=== PATIENT | female | born 1990 | race Caucasian/White ===

== ENCOUNTER 2017-05-21 14:55 | Emergency (ER) | payer BC, SELFPAY ==
[2017-05-21 14:56] VITALS: PULSE 98; RESP 18; TEMP 36.6; O2SAT 99; BMI 32.6
[2017-05-21 15:17] LABS: Basophils # 0.1 K/mm3 (0-0.2); Basophils % 0.6 % (0.1-2.0); Eosinophils # 0.1 K/mm3 (0.0-0.4); Eosinophils % 1.5 % (0.1-12.0); Hematocrit 44.9 % (37.0-47.0); Hemoglobin 15.1 g/dL (12.2-16.2); Lymphocytes # 1.9 K/mm3 (0.7-4.5); Lymphocytes % 21.1 K/mm3 (10-50); Mean Corpuscular HGB Conc 33.7 g/dL (31.8-35.4); Mean Corpuscular Hemoglobin 29.4 pg (27.0-31.2); Mean Corpuscular Volume 87.4 fl (81-99); Mean Platelet Volume 7.7 fl (7.4-10.4); Monocytes # 0.3 K/mm3 (0.1-1.0); Monocytes % 3.7 % (1.7-9.3); Neutrophils # 6.5 K/mm3 (1.8-7.8); Neutrophils % 73.1 % (37.0-80.0); Platelet Count 233 K/mm3 (142-424); Red Blood Count 5.14 M/mm3 (4.20-5.40); Red Cell Distribution Width 12.9 % (11.5-17.5); White Blood Count 8.9 K/mm3 (4.8-10.8)
[2017-05-21 15:29] LABS: Alanine Aminotransferase 32 U/L (12-78); Albumin Level 4.5 gm/dL (3.4-5.0); Alkaline Phosphatase 86 U/L (46-116); Anion Gap 18.2 mEq/L (5-15); Aspartate Amino Transferase 28 U/L (15-37); Bilirubin,Total 0.4 mg/dL (0.2-1.0); Blood Urea Nitrogen 18 mg/dL (7-18); Calcium 9.8 mg/dL (8.5-10.1); Carbon Dioxide 22 mmol/L (21.0-32.0); Chloride 100 mmol/L (98-107); Creatinine Clearance Estimated 107 mL/min (0-300); Creatinine,Serum 1.19 mg/dL (0.55-1.02); Estimated Glomerular Filt Rate 54 ml/min (>60); GFR (African American) 65 ML/MIN (>60); Globulin 4.5 gm/dl (1.3-3.2); Glucose 92 mg/dL (74-106); Potassium 3.2 mmoL/L (3.5-5.1); Sodium 137 mmol/L (136-145)
[2017-05-21 15:36] LABS: Acetone, Serum (Rapid) None Detected (None Detect)
[2017-05-21 15:42] LABS: Strep Scrn Group A (Rapid) Negative (Negative)
--- NOTE | 2017-05-21 16:21 | HMH.EDGENADL ---
ED Disposition Clinical Impression: Dehydration, Bacteriuria, Diabetes Disposition: Home, Self-Care Condition on Discharge: Good Additional Instructions: She was instructed to drink plenty of liquids, she was given anti-emetics and antibiotics. She is to follow up with her pcp in AM return if she thinks that she getting DKA Prescriptions: Nitrofurantoin Monohyd/M-Cryst [Macrobid 100 mg Capsule] 100 mg PO Q12 #14 capsule Ondansetron [Zofran 4mg ODT] 4 mg PO Q6 #12 tab.rapdis Referrals: Moon Mccartney [Primary Care Provider] - - Critical Care Critical Care Time: No Attestation: On 05/21/17, the high probability of a clinically significant, sudden or life threatening deterioration of the following system(s) required my full and direct attention, intervention and personal management. The time I documented below is in addition to time spent performing reported procedures but includes the following listed in this critical care notation. Medical Decision Making Vital Signs: 05/21/17 14:56 Temperature 97.9 F Temperature Source Oral Pulse Rate [Left Brachial] 98 H Respiratory Rate 18 Blood Pressure Source [Right Arm] Automatic Cuff Blood Pressure Position [Right Arm] Sitting 02 Sat by Pulse Oximetry 99 Oxygen Delivery Method Room Air - Lab Data Lab Results 05/21/17 15:05: WBC 8.9, RBC 5.14, Hgb 15.1, Hct 44.9, MCV 87.4, MCH 29.4, MCHC 33.7, RDW 12.9, Plt Count 233, MPV 7.7, Neut % (Auto) 73.1, Lymph % (Auto) 21.1, [place] % (Auto) 3.7, Eos % (Auto) 1.5, Baso % (Auto) 0.6, Neut # (Auto) 6.5, Lymph # (Auto) 1.9, [place] # (Auto) 0.3, Eos # (Auto) 0.1, Baso # (Auto) 0.1 05/21/17 15:05: Sodium 137, Potassium 3.2 L, Chloride 100, Carbon Dioxide 22, Anion Gap 18.2 H, BUN 18, Creatinine 1.19 H, Estimated Creat Clear 107, Estimated GFR 54 L, Est GFR ( Amer) 65, Glucose 92, Calcium 9.8, Total Bilirubin 0.4, AST 28, ALT 32, Alkaline Phosphatase 86, Total Protein 9.0 H, Albumin 4.5, Globulin 4.5 H, Albumin/Globulin Ratio 1.0 L, Acetone Level None detected 05/21/17 15:05: Influenza Type A Ag Negative, Influenza Type B Ag Negative 05/21/17 15:05: Group A Strep Rapid Negative 05/21/17 17:40: Urine Color Yellow, Urine Appearance Sl cloudy, Urine pH 5.5, Ur Specific [place] >= 1.030, Urine Protein 2+, Urine Glucose (UA) Negative, Urine Ketones Negative, Urine Blood Negative, Urine Nitrate Negative, Urine Bilirubin 1+ A, Urine Urobilinogen 0.2, Ur Leukocyte Esterase Trace, Urine RBC 3-5, Urine WBC 3-5, Ur Squamous Epith Cells 5-10, Urine Bacteria 2+ Result diagrams: 05/21/17 15:05 05/21/17 15:05 Orders (Tests/Meds): ED MEDICATIONS Generic Name Dose Route Start Last Admin Trade Name Freq PRN Reason Stop Dose Admin Sodium Chloride 10 ml 05/21/17 16:16 Saline Flush 10ml Syringe IV 05/22/17 04:16 NEEDED PRN Maintain IV Site Discontinued Medications Generic Name Dose Route Start Last Admin Trade Name Freq PRN Reason Stop Dose Admin Sodium Chloride 1,000 mls @ 999 mls/hr 05/21/17 16:30 05/21/17 16:30 Sod Chloride 0.9% 1000ml Bag IV 05/21/17 17:30 999 mls/hr .Q1H1M NEIL Administration Ketorolac Tromethamine 30 mg 05/21/17 16:31 05/21/17 16:33 Toradol 30mg/Ml Vial IV 05/21/17 16:32 30 mg ONCE ONE Administration Potassium Chloride 40 meq 05/21/17 16:16 05/21/17 16:36 Klor-Con 20meq Tablet PO 05/21/17 16:17 40 meq ONCE ONE Administration ORDERS Category Date Time Status Strep Screen Confirmation Stat Micro 05/21/17 15:05 Received Urine Culture Stat Micro 05/21/17 17:40 Received - Blas Inquiry Pt receiving controlled substance: No Blas was queried for this patient: No Medical Decision Making Narrative: The patient did have a anion gap of 15 mild hypokalemia of 3.2 negative acetone. She tested negative for flu and strep. Her creatinine was slightly elevated indicating mild dehydration. I discussed the results of the patient and informed
--- NOTE | 2017-05-21 16:24 | ED_ITS ---
ED Disposition Clinical Impression: Dehydration, Bacteriuria, Diabetes Disposition: Home, Self-Care Condition on Discharge: Good Additional Instructions: She was instructed to drink plenty of liquids, she was given anti-emetics and antibiotics. She is to follow up with her pcp in AM return if she thinks that she getting DKA Prescriptions: Nitrofurantoin Monohyd/M-Cryst [Macrobid 100 mg Capsule] 100 mg PO Q12 #14 capsule Ondansetron [Zofran 4mg ODT] 4 mg PO Q6 #12 tab.rapdis Referrals: Moon Mccartney [Primary Care Provider] - - Critical Care Critical Care Time: No Attestation: On 05/21/17, the high probability of a clinically significant, sudden or life threatening deterioration of the following system(s) required my full and direct attention, intervention and personal management. The time I documented below is in addition to time spent performing reported procedures but includes the following listed in this critical care notation. Medical Decision Making Vital Signs: 05/21/17 14:56 Temperature 97.9 F Temperature Source Oral Pulse Rate [Left Brachial] 98 H Respiratory Rate 18 Blood Pressure Source [Right Arm] Automatic Cuff Blood Pressure Position [Right Arm] Sitting 02 Sat by Pulse Oximetry 99 Oxygen Delivery Method Room Air - Lab Data Lab Results 05/21/17 15:05: WBC 8.9, RBC 5.14, Hgb 15.1, Hct 44.9, MCV 87.4, MCH 29.4, MCHC 33.7, RDW 12.9, Plt Count 233, MPV 7.7, Neut % (Auto) 73.1, Lymph % (Auto) 21.1 , [place] % (Auto) 3.7, Eos % (Auto) 1.5, Baso % (Auto) 0.6, Neut # (Auto) 6.5, Lymph # (Auto) 1.9, [place] # (Auto) 0.3, Eos # (Auto) 0.1, Baso # (Auto) 0.1 05/21/17 15:05: Sodium 137, Potassium 3.2 L, Chloride 100, Carbon Dioxide 22, Anion Gap 18.2 H, BUN 18, Creatinine 1.19 H, Estimated Creat Clear 107, Estimated GFR 54 L, Est GFR ( Amer) 65, Glucose 92, Calcium 9.8, Total Bilirubin 0.4, AST 28, ALT 32, Alkaline Phosphatase 86, Total Protein 9.0 H, Albumin 4.5, Globulin 4.5 H, Albumin/Globulin Ratio 1.0 L, Acetone Level None detected 05/21/17 15:05: Influenza Type A Ag Negative, Influenza Type B Ag Negative 05/21/17 15:05: Group A Strep Rapid Negative 05/21/17 17:40: Urine Color Yellow, Urine Appearance Sl cloudy, Urine pH 5.5, Ur Specific [place] >= 1.030, Urine Protein 2+, Urine Glucose (UA) Negative, Urine Ketones Negative, Urine Blood Negative, Urine Nitrate Negative, Urine Bilirubin 1+ A, Urine Urobilinogen 0.2, Ur Leukocyte Esterase Trace, Urine RBC 3 -5, Urine WBC 3-5, Ur Squamous Epith Cells 5-10, Urine Bacteria 2+ Result diagrams: 05/21/17 15:05 05/21/17 15:05 Orders (Tests/Meds): ED MEDICATIONS Generic Name Dose Route Start Last Admin Trade Name Freq PRN Reason Stop Dose Admin Sodium Chloride 10 ml 05/21/17 16:16 Saline Flush 10ml Syringe IV 05/22/17 04:16 NEEDED PRN Maintain IV Site Discontinued Medications Generic Name Dose Route Start Last Admin Trade Name Freq PRN Reason Stop Dose Admin Sodium Chloride 1,000 mls @ 999 mls/hr 05/21/17 16:30 05/21/17 16:30 Sod Chloride 0.9% 1000ml Bag IV 05/21/17 17:30 999 mls/hr .Q1H1M NEIL Administration Ketorolac Tromethamine 30 mg 05/21/17 16:31 05/21/17 16:33 Toradol 30mg/Ml Vial IV 05/21/17 16:32 30 mg ONCE ONE Administration Potassium Chloride 40 meq 05/21/17 16:16 05/21/17 16:36 Klor-Con 20meq Tablet PO
[2017-05-21 17:50] LABS: Appearance,Urine SL CLOUDY (Clear); Blood, Urine Negative (Negative); Color,Urine YELLOW (Yellow); Glucose,Urine (UA) Negative (Negative); Ketones,Urine Negative (Negative); Leukocyte Esterase,Urine TRACE (Negative); Microscopic, Urine URINE MICROSCOPIC (MICROSCOPIC); Nitrate,Urine Negative (Negative); PH,Urine 5.5 (5.0-8.5); Protein,Urine 2+ (Negative); Specific Gravity, Urine >= 1.030 (1.005-1.030); Urobilinogen,Urine 0.2 EU/dl (0.2)
[2017-05-21 17:58] LABS: Bilirubin,Urine 1+ (Negative)
[2017-05-21 18:07] LABS: Bacteria,Urine 2+ /lpf
[2017-05-21 18:31] VITALS: BP 122/70; PULSE 65; RESP 14; TEMP 36.9; O2SAT 98
== END 2017-05-21 18:32 | disposition home or self-care (01) ==
PROVIDERS: Emergency Provider Emergency Medicine; PCP Nurse Practitioner Family
DX: E86.0 Dehydration (principal); E10.9 Type 1 diabetes mellitus without complications; Z79.4 Long term (current) use of insulin; R53.1 Weakness; F17.210 Nicotine dependence, cigarettes, uncomplicated
CPT/HCPCS: 80053; 81001; 82009; 85025; 87086; 87275; 87276; 87430; 96365; 96374; 96375; 99283

== ENCOUNTER 2017-05-24 11:57 | Emergency (ER) | payer BC, SELFPAY ==
[2017-05-24 12:20] VITALS: BP 123/75; PULSE 82; RESP 18; TEMP 36.7; O2SAT 98; BMI 36.0
--- NOTE | 2017-05-24 12:34 | HMH.EDSKAF ---
ED Disposition Clinical Impression: Rona, Insulin dependent diabetes mellitus, Abscess of skin or subcutaneous tissue, Encounter for incision and drainage procedure, Non-compliance Disposition: Home, Self-Care Condition on Discharge: Good Instructions: MAL Rea for Skin Abscess Prescriptions: Sulfamethoxazole/Trimethoprim [Bactrim DS tablet] 2 each PO BID #40 tab Referrals: Moon Mccartney [Primary Care Provider] - Elijah Weiner MD [Staff Physician] - - Critical Care Critical Care Time: No Attestation: On 05/24/17, the high probability of a clinically significant, sudden or life threatening deterioration of the following system(s) required my full and direct attention, intervention and personal management. The time I documented below is in addition to time spent performing reported procedures but includes the following listed in this critical care notation. Medical Decision Making Vital Signs: 05/24/17 12:20 Temperature 98.1 F Temperature Source Oral Pulse Rate [Right Brachial] 82 Respiratory Rate 18 Blood Pressure [Right Arm] 123/75 Blood Pressure Mean [Right Arm] 91 Blood Pressure Source [Right Arm] Automatic Cuff Blood Pressure Position [Right Arm] Sitting 02 Sat by Pulse Oximetry 98 Oxygen Delivery Method Room Air - Lab Data Lab Results 05/24/17 14:27: WBC 8.6, RBC 4.66, Hgb 13.5, Hct 42.1, MCV 90.4, MCH 29.1, MCHC 32.1, RDW 12.8, Plt Count 201, MPV 7.7, Neut % (Auto) 67.9, Lymph % (Auto) 26.5, [place] % (Auto) 4.2, Eos % (Auto) 0.7, Baso % (Auto) 0.7, Neut # (Auto) 5.9, Lymph # (Auto) 2.3, [place] # (Auto) 0.4, Eos # (Auto) 0.1, Baso # (Auto) 0.1 05/24/17 14:27: Sodium 134 L, Potassium 4.0 D, Chloride 95 L, Carbon Dioxide 26, Anion Gap 17.0 H, BUN 9 D, Creatinine 0.86 D, Estimated Creat Clear 145, Estimated GFR 78, Est GFR ( Amer) 94 D, Glucose 467 H* Result diagrams: 05/24/17 14:27 05/24/17 14:27 Orders (Tests/Meds): ED MEDICATIONS Discontinued Medications Generic Name Dose Route Start Last Admin Trade Name Zena PRN Reason Stop Dose Admin Insulin Human Regular 5 unit 05/24/17 15:29 Humulin R Insulin 100 Units/Ml 10ml Vial IVP 05/24/17 15:30 ONCE ONE Insulin Human Regular 5 unit 05/24/17 15:34 Humulin R Insulin 100 Units/Ml 10ml Vial SQ 05/24/17 15:35 ONCE ONE Ketorolac Tromethamine 30 mg 05/24/17 14:34 05/24/17 14:36 Toradol 30mg/Ml Vial IV 05/24/17 14:35 30 mg ONCE ONE Administration Lidocaine/Epinephrine 2 ml 05/24/17 13:10 Lidocaine 1% W/Epi 1:100,000 20ml Vial IJ 05/24/17 13:11 ONCE ONE Morphine Sulfate 5 mg 05/24/17 13:00 05/24/17 13:00 Morphine 5mg/Ml Syringe IV 05/24/17 13:01 5 mg ONCE ONE Administration Morphine Sulfate 2 mg 05/24/17 13:10 05/24/17 13:15 Morphine 5mg/Ml Syringe IV 05/24/17 13:11 2 mg ONCE ONE Administration ORDERS Category Date Time Status Wound Culture and Gram Stain Stat Micro 05/24/17 13:05 Received - Blas Inquiry Pt receiving controlled substance: No Blas was queried for this patient: No Medical Decision Making Narrative: I discussed with the patient her findings and the need to be on a antibiotic to cover for staph-like Bactrim. Also I called Dr. Long the surgeon from [facility] attendings who presented to the ED for evaluation. Dr. Long presented to the ED and he did an I&D of the abscess with minimal amount of pus that was sent for culture. The patient complained of pain and she received Toradol injection . Labs returned and her sugars was 467 , Dr. Long recommendations I advised her for admission but she declined . He stated I can get my sugar under control and I have plenty of insulin. She requested pain medicine and antibiotics Dr. Long recommended Augmentin for antibiotic coverage and close follow-up in the morning with the surgery clinic with Dr Weiner. The patient verbalized understan
--- NOTE | 2017-05-24 12:37 | ED_ITS ---
ED Disposition Clinical Impression: Rona, Insulin dependent diabetes mellitus, Abscess of skin or subcutaneous tissue, Encounter for incision and drainage procedure, Non-compliance Disposition: Home, Self-Care Condition on Discharge: Good Instructions: MAL Rea for Skin Abscess Prescriptions: Sulfamethoxazole/Trimethoprim [Bactrim DS tablet] 2 each PO BID #40 tab Referrals: Moon Mccartney [Primary Care Provider] - Elijah Weiner MD [Staff Physician] - - Critical Care Critical Care Time: No Attestation: On 05/24/17, the high probability of a clinically significant, sudden or life threatening deterioration of the following system(s) required my full and direct attention, intervention and personal management. The time I documented below is in addition to time spent performing reported procedures but includes the following listed in this critical care notation. Medical Decision Making Vital Signs: 05/24/17 12:20 Temperature 98.1 F Temperature Source Oral Pulse Rate [Right Brachial] 82 Respiratory Rate 18 Blood Pressure [Right Arm] 123/75 Blood Pressure Mean [Right Arm] 91 Blood Pressure Source [Right Arm] Automatic Cuff Blood Pressure Position [Right Arm] Sitting 02 Sat by Pulse Oximetry 98 Oxygen Delivery Method Room Air - Lab Data Lab Results 05/24/17 14:27: WBC 8.6, RBC 4.66, Hgb 13.5, Hct 42.1, MCV 90.4, MCH 29.1, MCHC 32.1, RDW 12.8, Plt Count 201, MPV 7.7, Neut % (Auto) 67.9, Lymph % (Auto) 26.5 , [place] % (Auto) 4.2, Eos % (Auto) 0.7, Baso % (Auto) 0.7, Neut # (Auto) 5.9, Lymph # (Auto) 2.3, [place] # (Auto) 0.4, Eos # (Auto) 0.1, Baso # (Auto) 0.1 05/24/17 14:27: Sodium 134 L, Potassium 4.0 D, Chloride 95 L, Carbon Dioxide 26 , Anion Gap 17.0 H, BUN 9 D, Creatinine 0.86 D, Estimated Creat Clear 145, Estimated GFR 78, Est GFR ( Amer) 94 D, Glucose 467 H* Result diagrams: 05/24/17 14:27 05/24/17 14:27 Orders (Tests/Meds): ED MEDICATIONS Discontinued Medications Generic Name Dose Route Start Last Admin Trade Name Zena PRN Reason Stop Dose Admin Insulin Human Regular 5 unit 05/24/17 15:29 Humulin R Insulin 100 Units/Ml 10ml Vial IVP 05/24/17 15:30 ONCE ONE Insulin Human Regular 5 unit 05/24/17 15:34 Humulin R Insulin 100 Units/Ml 10ml Vial SQ 05/24/17 15:35 ONCE ONE Ketorolac Tromethamine 30 mg 05/24/17 14:34 05/24/17 14:36 Toradol 30mg/Ml Vial IV 05/24/17 14:35 30 mg ONCE ONE Administration Lidocaine/Epinephrine 2 ml 05/24/17 13:10 Lidocaine 1% W/Epi 1:100,000 20ml Vial IJ 05/24/17 13:11 ONCE ONE Morphine Sulfate 5 mg 05/24/17 13:00 05/24/17 13:00 Morphine 5mg/Ml Syringe IV 05/24/17 13:01 5 mg ONCE ONE Administration Morphine Sulfate 2 mg 05/24/17 13:10 05/24/17 13:15 Morphine 5mg/Ml Syringe IV 05/24/17 13:11 2 mg ONCE ONE Administration ORDERS Category Date Time Status Wound Culture and Gram Stain Stat Micro 05/24/17 13:05 Received - Blas Inquiry Pt receiving controlled substance: No Blas was queried for this patient: No Medical Decision Making Narrative: I discussed with the patient her findings and the need to be on a antibiotic to cover for staph-like Bactrim. Also I called Dr. Long the surgeon from [facility]
--- NOTE | 2017-05-24 13:18 | HMH.GSCON ---
*Admission Date: 05/24/17 *Chief complaint: mons/labial abscess *History of present illness: 27 year old female with history of type 1 diabetes who presents to the ED today with painful swelling of left labia. She was seen in ED several days ago for the same problem and received antibiotics. She re-presents today with worsening pain and larger mass. She is afebrile and hemodynamically stable. No labs have been drawn this visit. Review of Systems - Review of Systems Review of systems:: pertinent systems reviewed and negative unless documented below [facility] History I have reviewed the patient's past medical history: Yes Medical History: Reports:: Diabetes Mellitus Type 1 Denies:: Cancer, Diabetes Mellitus Type 2, MRSA Amputation: No Fractures: No - *Social History Smoking Status: Current every day smoker Tobacco Type: cigarettes Alcohol Intake: never Meds Allergies Allergy/AdvReac Type Severity Reaction Status Date / Time Iodinated Contrast Media - Allergy Intermediate I-HIVES Verified 05/21/17 16:29 Oral and [Iodinated Contrast Media - IV Dye] latex Allergy Intermediate I-HIVES Verified 05/21/17 16:29 levofloxacin [From LEVAQUIN] Allergy Unknown I-HIVES Verified 05/21/17 16:29 tramadol [From ULTRAM] Allergy Unknown HIVES/N/V Verified 05/21/17 16:29 ANTIHISTAMINE Allergy Unknown SOB Uncoded 04/28/17 15:29 Exam Vital signs and Labs for Last 24 Hours: Temp Pulse Resp BP Pulse Ox 98.1 F 82 18 123/75 98 05/24/17 12:20 05/24/17 12:20 05/24/17 12:20 05/24/17 12:20 05/24/17 12:20 I & O for Last 24 hours: Intake & Output 05/21/17 05/22/17 05/23/17 05/24/17 23:59 23:59 23:59 23:59 Weight 210 lb - *Routine Respiratory Exam Present: CTA bilaterally. Absent: accessory muscle use, patient mechanically ventilated, decreased breath sounds, wheezes - *Routine Cardiovascular Exam Present: RRR. Absent: bradycardia, tachycardia - *Routine Abdominal Exam Present: soft. Absent: tenderness, distended, rebound, guarding - *Routine Exam External: Present: erythema, tenderness, cysts Assessment and Plan (1) Left genital labial abscess Current visit: Yes Status: Acute Category: Medical Code(s): N76.4 - Abscess of vulva - Assessment and plan all Dx Assessment and Plan for all problems:: left mons/labial abscess. I&Ded in ED and packed with 4x4. Wound culture obtained. Recommend basic labs, as any significant abnormality (leukocytosis, hyponatremia) may warrent overnight observation and IV antibiotics. If no abnormality, discharge home with augmentin and close followup with Dr. Weiner (tomorrow, if available). Patient may be a drug seeker, but several doses of percocet are reasonable following I&D.
--- NOTE | 2017-05-24 13:23 | P.CONS_ITS ---
*Admission Date: 05/24/17 *Chief complaint: mons/labial abscess *History of present illness: 27 year old female with history of type 1 diabetes who presents to the ED today with painful swelling of left labia. She was seen in ED several days ago for the same problem and received antibiotics. She re-presents today with worsening pain and larger mass. She is afebrile and hemodynamically stable. No labs have been drawn this visit. Review of Systems - Review of Systems Review of systems:: pertinent systems reviewed and negative unless documented below [facility] History I have reviewed the patient's past medical history: Yes Medical History: Reports:: Diabetes Mellitus Type 1 Denies:: Cancer, Diabetes Mellitus Type 2, MRSA Amputation: No Fractures: No - *Social History Smoking Status: Current every day smoker Tobacco Type: cigarettes Alcohol Intake: never Meds Allergies Allergy/AdvReac Type Severity Reaction Status Date / Time Iodinated Contrast Media - Allergy Intermediate I-HIVES Verified 05/21/17 16:29 Oral and [Iodinated Contrast Media - IV Dye] latex Allergy Intermediate I-HIVES Verified 05/21/17 16:29 levofloxacin [From LEVAQUIN] Allergy Unknown I-HIVES Verified 05/21/17 16:29 tramadol [From ULTRAM] Allergy Unknown HIVES/N/V Verified 05/21/17 16:29 ANTIHISTAMINE Allergy Unknown SOB Uncoded 04/28/17 15:29 Exam Vital signs and Labs for Last 24 Hours: Temp Pulse Resp BP Pulse Ox 98.1 F 82 18 123/75 98 05/24/17 12:20 05/24/17 12:20 05/24/17 12:20 05/24/17 12:20 05/24/17 12:20 I & O for Last 24 hours: Intake & Output 05/21/17 05/22/17 05/23/17 05/24/17 23:59 23:59 23:59 23:59 Weight 210 lb - *Routine Respiratory Exam Present: CTA bilaterally. Absent: accessory muscle use, patient mechanically ventilated, decreased breath sounds, wheezes - *Routine Cardiovascular Exam Present: RRR. Absent: bradycardia, tachycardia - *Routine Abdominal Exam Present: soft. Absent: tenderness, distended, rebound, guarding - *Routine Exam External: Present: erythema, tenderness, cysts Assessment and Plan (1) Left genital labial abscess Current visit: Yes Status: Acute Category: Medical Code(s): N76.4 - Abscess of vulva - Assessment and plan all Dx Assessment and Plan for all problems:: left mons/labial abscess. I&Ded in ED and packed with 4x4. Wound culture obtained. Recommend basic labs, as any significant abnormality (leukocytosis, hyponatremia) may warrent overnight observation and IV antibiotics. If no abnormality, discharge home with augmentin and close followup with Dr. Weiner ( tomorrow, if available). Patient may be a drug seeker, but several doses of percocet are reasonable following I&D.
--- NOTE | 2017-05-24 13:29 | HMH.OPNOTE ---
Date of procedure: 05/24/17 Pre-op Diagnosis:: left mons/labial abscess Post-op diagnosis:: same Procedure performed:: I&D of abscess Surgeon:: Elijah Miranda MD Anesthesia: local Estimated blood loss (mL): 1 Operative findings:: purulent fluid, sent for culture Operative note:: the patient's left groin was prepped and draped in the usual sterile fashion. The site was anesthetized with lidocaine. A 2cm incision was made over the area of maximal fluctuance. Purulent fluid was expressed through the incision, which was swabbed for culture. The wound was probed with a hemostat and all loculations were broken up. The wound was packed with a 4x4 and secured with another 4x4 and tape. There were no complications. The patient tolerated the procedure well. Pathology: none sent Condition: stable Disposition: no change Specimens:: abscess culture Complications:: none
--- NOTE | 2017-05-24 14:18 | PC.NURSE ---
INFORMED OF PT REQUEST FOR PAIN MEDS. NO NEW ORDERS AT THIS TIME.
[2017-05-24 14:40] LABS: Basophils # 0.1 K/mm3 (0-0.2); Basophils % 0.7 % (0.1-2.0); Eosinophils # 0.1 K/mm3 (0.0-0.4); Eosinophils % 0.7 % (0.1-12.0); Hematocrit 42.1 % (37.0-47.0); Hemoglobin 13.5 g/dL (12.2-16.2); Lymphocytes # 2.3 K/mm3 (0.7-4.5); Lymphocytes % 26.5 K/mm3 (10-50); Mean Corpuscular HGB Conc 32.1 g/dL (31.8-35.4); Mean Corpuscular Hemoglobin 29.1 pg (27.0-31.2); Mean Corpuscular Volume 90.4 fl (81-99); Mean Platelet Volume 7.7 fl (7.4-10.4); Monocytes # 0.4 K/mm3 (0.1-1.0); Monocytes % 4.2 % (1.7-9.3); Neutrophils # 5.9 K/mm3 (1.8-7.8); Neutrophils % 67.9 % (37.0-80.0); Platelet Count 201 K/mm3 (142-424); Red Blood Count 4.66 M/mm3 (4.20-5.40); Red Cell Distribution Width 12.8 % (11.5-17.5); White Blood Count 8.6 K/mm3 (4.8-10.8)
[2017-05-24 14:47] LABS: Blood Urea Nitrogen 9 mg/dL (7-18); Carbon Dioxide 26 mmol/L (21.0-32.0); Chloride 95 mmol/L (98-107); Creatinine Clearance Estimated 145 mL/min (0-300); Creatinine,Serum 0.86 mg/dL (0.55-1.02); Estimated Glomerular Filt Rate 78 ml/min (>60); GFR (African American) 94 ML/MIN (>60); Sodium 134 mmol/L (136-145)
[2017-05-24 14:48] LABS: Glucose 467 mg/dL (74-106)
[2017-05-24 15:54] VITALS: BP 142/78; PULSE 68; RESP 18; TEMP 36.8
== END 2017-05-24 15:54 | disposition left against medical advice (07) ==
PROVIDERS: Emergency Provider Emergency Medicine; PCP Nurse Practitioner Family
DX: L02.214 Cutaneous abscess of groin (principal); Z91.19 Patient's noncompliance with other medical treatment and regimen; Z79.4 Long term (current) use of insulin; F17.210 Nicotine dependence, cigarettes, uncomplicated
CPT/HCPCS: 10060; 36415; 80048; 85025; 87070; 87077; 87205; 96372; 96374; 96375; 99283

== ENCOUNTER → 2017-05-25 12:50 | Outpatient (CLI) | payer BC, SELFPAY ==
[2017-05-25 13:30] LABS: Basophils # 0.1 K/mm3 (0-0.2); Basophils % 0.5 % (0.1-2.0); Eosinophils # 0.1 K/mm3 (0.0-0.4); Eosinophils % 1.1 % (0.1-12.0); Hematocrit 43.1 % (37.0-47.0); Hemoglobin 14.2 g/dL (12.2-16.2); Lymphocytes # 2.7 K/mm3 (0.7-4.5); Lymphocytes % 24.3 K/mm3 (10-50); Mean Corpuscular HGB Conc 32.9 g/dL (31.8-35.4); Mean Corpuscular Hemoglobin 29.6 pg (27.0-31.2); Mean Corpuscular Volume 89.7 fl (81-99); Mean Platelet Volume 7.6 fl (7.4-10.4); Monocytes # 0.3 K/mm3 (0.1-1.0); Monocytes % 2.5 % (1.7-9.3); Neutrophils % 71.6 % (37.0-80.0); Platelet Count 214 K/mm3 (142-424); Red Blood Count 4.81 M/mm3 (4.20-5.40); Red Cell Distribution Width 12.7 % (11.5-17.5); White Blood Count 11.2 K/mm3 (4.8-10.8)
[2017-05-25 14:18] LABS: Anion Gap 19.6 mEq/L (5-15); Blood Urea Nitrogen 11 mg/dL (7-18); Carbon Dioxide 22 mmol/L (21.0-32.0); Chloride 98 mmol/L (98-107); Creatinine,Serum 0.87 mg/dL (0.55-1.02); Estimated Glomerular Filt Rate 77 ml/min (>60); GFR (African American) 93 ML/MIN (>60); Glucose 310 mg/dL (74-106); Potassium 3.6 mmoL/L (3.5-5.1); Sodium 136 mmol/L (136-145)
== END ==
PROVIDERS: PCP Surgery; Visit Provider Surgery
DX: L02.91 Cutaneous abscess, unspecified (principal)
CPT/HCPCS: 36415; 80048; 85025

== ENCOUNTER 2017-06-14 18:37 | Inpatient (IN) | payer BC, SELFPAY ==
[2017-06-14 18:38] VITALS: BP 132/48; PULSE 112; RESP 16; TEMP 37.2; O2SAT 100; BMI 31.9
--- NOTE | 2017-06-14 19:01 | HMH.EDSKAF ---
ED Disposition Clinical Impression: Abscess of buttock, left, IDDM (insulin dependent diabetes mellitus) Disposition: Admitted As Inpatient Condition on Discharge: Good - Critical Care Critical Care Time: No Attestation: On 06/14/17, the high probability of a clinically significant, sudden or life threatening deterioration of the following system(s) required my full and direct attention, intervention and personal management. The time I documented below is in addition to time spent performing reported procedures but includes the following listed in this critical care notation. Medical Decision Making - Medical Records Medical records reviewed: Yes: I reviewed the patient's medical records. Vital Signs: 06/14/17 18:38 Temperature 98.9 F Temperature Source Temporal Artery Scan Pulse Rate [Right Brachial] 112 H Respiratory Rate 16 Blood Pressure [Left Arm] 132/48 Blood Pressure Mean [Left Arm] 76 Blood Pressure Source [Left Arm] Automatic Cuff Blood Pressure Position [Left Arm] Sitting 02 Sat by Pulse Oximetry 100 Oxygen Delivery Method Room Air - Lab Data Lab results reviewed: Yes: I reviewed the patient's lab results. Lab Results 06/14/17 18:55: WBC 9.6, RBC 4.34, Hgb 12.9, Hct 39.9, MCV 92.0, MCH 29.7, MCHC 32.3, RDW 13.0, Plt Count 234, MPV 7.8, Neut % (Auto) 72.1, Lymph % (Auto) 20.8, [place] % (Auto) 5.3, Eos % (Auto) 1.1, Baso % (Auto) 0.6, Neut # (Auto) 6.9, Lymph # (Auto) 2.0, [place] # (Auto) 0.5, Eos # (Auto) 0.1, Baso # (Auto) 0.1 06/14/17 19:09: POC Glucose 385 Result diagrams: 06/14/17 18:55 Orders (Tests/Meds): ED MEDICATIONS Generic Name Dose Route Start Last Admin Trade Name Freq PRN Reason Stop Dose Admin Sodium Chloride 1,000 mls @ 100 mls/hr 06/14/17 19:15 06/14/17 19:14 Sod Chloride 0.9% 1000ml Bag IV 07/14/17 19:14 100 mls/hr .Q10H NEIL Administration Discontinued Medications Generic Name Dose Route Start Last Admin Trade Name Freq PRN Reason Stop Dose Admin Vancomycin HCl 2,000 mg/ 250 mls @ 125 mls/hr 06/14/17 19:18 06/14/17 19:30 Sodium Chloride IV 06/14/17 19:19 125 mls/hr ONCE ONE Administration Protocol Morphine Sulfate 4 mg 06/14/17 19:09 06/14/17 19:14 Morphine 5mg/Ml Syringe IV 06/14/17 19:10 4 mg ONCE ONE Administration Ondansetron HCl 4 mg 06/14/17 19:10 06/14/17 19:14 Zofran 4mg/2ml Vial IV 06/14/17 19:11 4 mg ONCE ONE Administration ORDERS Category Date Time Status Comprehensive Metabolic Panel Stat Lab 06/14/17 18:55 Received Lactic Acid Stat Lab 06/14/17 18:55 Received Blood Culture Stat Micro 06/14/17 18:55 Received - Physician Consults Physician Consulted: araceli Reason -: Admission, Pt condition Additional Consult: vanita Reason -: Pt condition - Blas Inquiry Pt receiving controlled substance: No Skin/Abscess/FB HPI - General Chief complaint: Skin/Abscess/Foreign Body Stated complaint: Boil on bottom Time Seen by Provider: 06/14/17 19:01 Mode of Arrival: Ambulatory Source of Information: Patient, Medical Record Limitations: No Limitations Description of Symptoms (Recalled from ER Triage Doc. by RN): Pt advises she has a boil on her left buttock. Upon exam pt left buttock red, swollen - History of Present Illness HPI narrative: progressive boil on lt buttock in this diabetic over the last 2 days MD complaint: abscess/boil Onset (ago): day(s) Tetanus up to date: unsure Location: buttocks Severity: severe Treatments prior to arrival: none - Related Data Home Medications Medication Instructions Recorded Confirmed lisinopril 20 mg tablet 20 mg PO ONCE 05/25/17 Allergies Allergy/AdvReac Type Severity Reaction Status Date / Time Iodinated Contrast Media - Allergy Intermediate I-HIVES Verified 06/08/17 14:02 Oral and [Iodinated Contrast Media - IV Dye] latex Allergy Intermediate I-HIVES Verified 06/08/17 14:02 [facility]
--- NOTE | 2017-06-14 19:04 | ED_ITS ---
ED Disposition Clinical Impression: Abscess of buttock, left, IDDM (insulin dependent diabetes mellitus) Disposition: Admitted As Inpatient Condition on Discharge: Good - Critical Care Critical Care Time: No Attestation: On 06/14/17, the high probability of a clinically significant, sudden or life threatening deterioration of the following system(s) required my full and direct attention, intervention and personal management. The time I documented below is in addition to time spent performing reported procedures but includes the following listed in this critical care notation. Medical Decision Making - Medical Records Medical records reviewed: Yes: I reviewed the patient's medical records. Vital Signs: 06/14/17 18:38 Temperature 98.9 F Temperature Source Temporal Artery Scan Pulse Rate [Right Brachial] 112 H Respiratory Rate 16 Blood Pressure [Left Arm] 132/48 Blood Pressure Mean [Left Arm] 76 Blood Pressure Source [Left Arm] Automatic Cuff Blood Pressure Position [Left Arm] Sitting 02 Sat by Pulse Oximetry 100 Oxygen Delivery Method Room Air - Lab Data Lab results reviewed: Yes: I reviewed the patient's lab results. Lab Results 06/14/17 18:55: WBC 9.6, RBC 4.34, Hgb 12.9, Hct 39.9, MCV 92.0, MCH 29.7, MCHC 32.3, RDW 13.0, Plt Count 234, MPV 7.8, Neut % (Auto) 72.1, Lymph % (Auto) 20.8 , [place] % (Auto) 5.3, Eos % (Auto) 1.1, Baso % (Auto) 0.6, Neut # (Auto) 6.9, Lymph # (Auto) 2.0, [place] # (Auto) 0.5, Eos # (Auto) 0.1, Baso # (Auto) 0.1 06/14/17 19:09: POC Glucose 385 Result diagrams: 06/14/17 18:55 Orders (Tests/Meds): ED MEDICATIONS Generic Name Dose Route Start Last Admin Trade Name Freq PRN Reason Stop Dose Admin Sodium Chloride 1,000 mls @ 100 mls/hr 06/14/17 19:15 06/14/17 19:14 Sod Chloride 0.9% 1000ml Bag IV 07/14/17 19:14 100 mls/hr .Q10H NEIL Administration Discontinued Medications Generic Name Dose Route Start Last Admin Trade Name Freq PRN Reason Stop Dose Admin Vancomycin HCl 2,000 mg/ 250 mls @ 125 mls/hr 06/14/17 19:18 06/14/17 19:30 Sodium Chloride IV 06/14/17 19:19 125 mls/hr ONCE ONE Administration Protocol Morphine Sulfate 4 mg 06/14/17 19:09 06/14/17 19:14 Morphine 5mg/Ml Syringe IV 06/14/17 19:10 4 mg ONCE ONE Administration Ondansetron HCl 4 mg 06/14/17 19:10 06/14/17 19:14 Zofran 4mg/2ml Vial IV 06/14/17 19:11 4 mg ONCE ONE Administration ORDERS Category Date Time Status Comprehensive Metabolic Panel Stat Lab 06/14/17 18:55 Received Lactic Acid Stat Lab 06/14/17 18:55 Received Blood Culture Stat Micro 06/14/17 18:55 Received - Physician Consults Physician Consulted: araceli Reason -: Admission, Pt condition Additional Consult: vanita Reason -: Pt condition - Blas Inquiry Pt receiving controlled substance: No Skin/Abscess/FB HPI - General Chief complaint: Skin/Abscess/Foreign Body Stated complaint: Boil on bottom Time Seen by Provider: 06/14/17 19:01 Mode of Arrival: Ambulatory Source of Information: Patient, Medical Record Limitations: No Limitations Description of Symptoms (Recalled from ER Triage Doc. by RN): Pt advises she has a boil on her left buttock. Upon exam pt left buttock red, swollen
[2017-06-14 19:14] LABS: Basophils # 0.1 K/mm3 (0-0.2); Basophils % 0.6 % (0.1-2.0); Eosinophils # 0.1 K/mm3 (0.0-0.4); Eosinophils % 1.1 % (0.1-12.0); Hematocrit 39.9 % (37.0-47.0); Hemoglobin 12.9 g/dL (12.2-16.2); Lymphocytes % 20.8 K/mm3 (10-50); Mean Corpuscular HGB Conc 32.3 g/dL (31.8-35.4); Mean Corpuscular Hemoglobin 29.7 pg (27.0-31.2); Mean Platelet Volume 7.8 fl (7.4-10.4); Monocytes # 0.5 K/mm3 (0.1-1.0); Monocytes % 5.3 % (1.7-9.3); Neutrophils # 6.9 K/mm3 (1.8-7.8); Neutrophils % 72.1 % (37.0-80.0); Platelet Count 234 K/mm3 (142-424); Red Blood Count 4.34 M/mm3 (4.20-5.40); White Blood Count 9.6 K/mm3 (4.8-10.8)
[2017-06-14 19:17] LABS: POC Glucose,Bedside 385 mg/dL
--- NOTE | 2017-06-14 19:19 | PC.NURSE ---
VANCOMYCIN DOSING VERIFIED PER [facility] FOR VANCOMYCIN 2 GM IV X 1 DOSE
--- NOTE | 2017-06-14 19:20 | PC.NURSE ---
TO BE ADMITTED TO ROOM [address] [facility] TO [facility] WITH DX ABCESS TO BUTTOCK LEFT
[2017-06-14 19:28] LABS: Alanine Aminotransferase 35 U/L (12-78); Albumin Level 3.3 gm/dL (3.4-5.0); Albumin/Globulin Ratio 0.6 (1.1-1.8); Alkaline Phosphatase 90 U/L (46-116); Anion Gap 22.8 mEq/L (5-15); Aspartate Amino Transferase 26 U/L (15-37); Bilirubin,Total 0.7 mg/dL (0.2-1.0); Blood Urea Nitrogen 15 mg/dL (7-18); Calcium 9.5 mg/dL (8.5-10.1); Carbon Dioxide 19 mmol/L (21.0-32.0); Chloride 94 mmol/L (98-107); Creatinine Clearance Estimated 100 mL/min (0-300); Creatinine,Serum 1.25 mg/dL (0.55-1.02); Estimated Glomerular Filt Rate 51 ml/min (>60); GFR (African American) 61 ML/MIN (>60); Globulin 5.1 gm/dl (1.3-3.2); Glucose 390 mg/dL (74-106); Potassium 3.8 mmoL/L (3.5-5.1); Sodium 132 mmol/L (136-145); Total Protein,Serum 8.4 gm/dL (6.4-8.2)
--- NOTE | 2017-06-14 19:45 | PC.NURSE ---
PT FULL CODE, REPORT FROM JUDY
[2017-06-14 19:50] LABS: Lactic Acid 2.1 mmol/L (0.4-2.0)
[2017-06-14 20:38] VITALS: BP 149/74; PULSE 57; RESP 20; TEMP 36.5; O2SAT 96
[2017-06-14 20:40] VITALS: BP 137/78; PULSE 115; RESP 18; TEMP 36.6; O2SAT 100; BMI 30.6
[2017-06-14 22:07] LABS: Reflex Lactic Add Lactic Reflex
[2017-06-14 22:15] VITALS: O2SAT 100
[2017-06-15] VITALS (20 sets, daily range): BP systolic 103–161; BP diastolic 51–95; PULSE 78–105; RESP 16–20; TEMP 36.4–37.6; O2SAT 91–100; BMI 30.5
--- NOTE | 2017-06-15 00:20 | PC.NURSE ---
PT FINISHED SHOWER. STATES BEFORE SHE GOT IN SHOWER, NOTICED ABSCESS ON LEFT BUTTOCK HAD OPENED UP AND BLEEDING. BED LINENS CHANGED. COVERED WITH POLYMEM AND TEGADERM.
--- NOTE | 2017-06-15 05:20 | PC.NURSE ---
PT NPO SINCE MIDNIGHT. HAS CONSULT THIS AM WITH DR. MAYES. IV SECURE AND PATENT INFUSING NS@100/HR. RESPIRATIONS EVEN AND UNLABORED WITH BREATH SOUNDS CLEAR AND EQUAL. PT HAS NICOTENE PATCH ON. SLEPT INTERVALS. C/O PAIN AND MEDS GIVEN ORDERS ALLOW. PT STABLE. WILL CONTINUE TO MONITOR. REPORT TO BE GIVEN TO ONCOMING NURSE.
[2017-06-15 06:48] LABS: POC Glucose,Bedside 237 mg/dL
[2017-06-15 06:48] LABS: Eosinophils # 0.1 K/mm3 (0.0-0.4); Lymphocytes # 1.9 K/mm3 (0.7-4.5)
[2017-06-15 06:48] LABS: POC Glucose,Bedside 282 mg/dL
--- NOTE | 2017-06-15 06:52 | HMH.HP ---
*Admission Date: 06/14/17 *Chief complaint: Pain in left buttock *History of present illness: A 7-year-old noncompliant, uncontrolled insulin-dependent diabetic presented to the emergency department with a painful swollen mass in the left buttock diagnosed as an abscess. She has been admitted for surgical consultation and intervention. Patient endorsed rapid progression of this abscess over prior 48 hours. She was in the hospital a few weeks ago for perineal abscess. She denies fevers or chills. Her last A1c was 11. [facility] History I have reviewed the patient's past medical history: Yes Medical History: Reports:: Diabetes Mellitus Type 1 Denies:: Cancer, Diabetes Mellitus Type 2, MRSA Laterality Cases: Bilateral: Myringotomy (Ear Tubes), Tonsillectomy Other Surgeries: Yes: Colonoscopy, , EGD, Tubal Ligation Amputation: No Fractures: No - *Social History Educational Level: Completed College Smoking Status: Current every day smoker Tobacco Type: cigarettes # Packs/Day (cigarettes): 1 #Yrs smoked (if former smoker): 11 Alcohol Intake: never Alcohol Intake Frequency:: other Substance Use Type: denies use Occupational Status: employed Housing: house Household Members: children, other - Psychiatric History Expresses thoughts of harming self/others: None Suicide Plan Description: No Plan *Family Hx:: Diabetes, Anemia, Hypertension Review of Systems - Review of Systems Review of systems:: pertinent systems reviewed and negative unless documented below - *Neurologic Denies frequent falls, Denies seizure-like activity Meds Home Medications Medication Instructions Recorded Confirmed Type lisinopril 20 mg tablet 20 mg PO ONCE 05/25/17 06/14/17 History Insulin Glargine,Hum.rec.anlog 40 unit SQ BID 06/14/17 06/14/17 History [Lantus Insulin 100units/mL 10mL vial] Insulin Lispro [Humalog] 100 unit SQ QID 06/14/17 06/14/17 History Propranolol HCl [Inderal 20mg 20 mg PO BID 06/14/17 06/14/17 History tablet] Allergies Allergy/AdvReac Type Severity Reaction Status Date / Time Iodinated Contrast Media - Allergy Intermediate I-HIVES Verified 06/08/17 14:02 Oral and [Iodinated Contrast Media - IV Dye] latex Allergy Intermediate I-HIVES Verified 06/08/17 14:02 levofloxacin [From LEVAQUIN] Allergy Unknown I-HIVES Verified 06/08/17 14:02 tramadol [From ULTRAM] Allergy Unknown HIVES/N/V Verified 06/08/17 14:02 ANTIHISTAMINE Allergy Unknown SOB Uncoded 06/08/17 14:02 Exam Vital signs and Labs for Last 24 Hours: Temp Pulse Resp BP Pulse Ox 98.6 F 105 H 18 113/64 98 06/15/17 04:00 06/15/17 04:00 06/15/17 04:00 06/15/17 04:00 06/15/17 04:00 Laboratory Results - last 24 hr 06/14/17 22:29: POC Glucose 282 06/14/17 22:50: Lactic Acid Fup @ 4Hr 1.0 06/15/17 02:27: POC Glucose 237 Laboratory Results - last 24 hr 06/14/17 18:55: WBC 9.6, RBC 4.34, Hgb 12.9, Hct 39.9, MCV 92.0, MCH 29.7, MCHC 32.3, RDW 13.0, Plt Count 234, MPV 7.8, Neut % (Auto) 72.1, Lymph % (Auto) 20.8, [place] % (Auto) 5.3, Eos % (Auto) 1.1, Baso % (Auto) 0.6, Neut # (Auto) 6.9, Lymph # (Auto) 2.0, [place] # (Auto) 0.5, Eos # (Auto) 0.1, Baso # (Auto) 0.1 06/14/17 18:55: Sodium 132 L, Potassium 3.8, Chloride 94 L, Carbon Dioxide 19 L, Anion Gap 22.8 H, BUN 15, Creatinine 1.25 H, Estimated Creat Clear 100, Estimated GFR 51 L, Est GFR ( Amer) 61, Glucose 390 H, Calcium 9.5, Total Bilirubin 0.7, AST 26, ALT 35, Alkaline Phosphatase 90, Total Protein 8.4 H, Albumin 3.3 L, Globulin 5.1 H, Albumin/Globulin Ratio 0.6 L 06/14/17 18:55: Lactic Acid 2.1 H 06/14/17 19:09: POC Glucose 385 06/14/17 22:29: POC Glucose 282 06/14/17 22:50: Lactic Acid Fup @ 4Hr 1.0 06/15/17 02:27: POC Glucose 237 06/15/17 05:55: WBC 7.6, RBC 3.59 L, Hct 32.2 L, MCV 89.7, MCH 29.3, MCHC 32.7, RDW 13.0, Plt Count 213, MPV 7.3 L, Neut % (Auto) 65.5, Lymph % (Auto) 25.3, [place] % (Auto) 7.4, Eos % (Auto) 1.4, Baso % (Auto) 0.4, Neut # (Auto) 5.0, Lym
[2017-06-15 06:53] LABS: Anion Gap 13.1 mEq/L (5-15); Basophils % 0.4 % (0.1-2.0); Blood Urea Nitrogen 8 mg/dL (7-18); Carbon Dioxide 26 mmol/L (21.0-32.0); Chloride 101 mmol/L (98-107); Creatinine Clearance Estimated 148 mL/min (0-300); Creatinine,Serum 0.81 mg/dL (0.55-1.02); Eosinophils % 1.4 % (0.1-12.0); Estimated Glomerular Filt Rate 84 ml/min (>60); GFR (African American) 101 ML/MIN (>60); Glucose 197 mg/dL (74-106); Hematocrit 32.2 % (37.0-47.0); Lymphocytes % 25.3 K/mm3 (10-50); Mean Corpuscular HGB Conc 32.7 g/dL (31.8-35.4); Mean Corpuscular Hemoglobin 29.3 pg (27.0-31.2); Mean Corpuscular Volume 89.7 fl (81-99); Mean Platelet Volume 7.3 fl (7.4-10.4); Monocytes # 0.6 K/mm3 (0.1-1.0); Monocytes % 7.4 % (1.7-9.3); Neutrophils % 65.5 % (37.0-80.0); Platelet Count 213 K/mm3 (142-424); Potassium 3.1 mmoL/L (3.5-5.1); Red Blood Count 3.59 M/mm3 (4.20-5.40); Sodium 137 mmol/L (136-145); White Blood Count 7.6 K/mm3 (4.8-10.8)
--- NOTE | 2017-06-15 06:56 | P.HP_ITS ---
*Admission Date: 06/14/17 *Chief complaint: Pain in left buttock *History of present illness: A 7-year-old noncompliant, uncontrolled insulin-dependent diabetic presented to the emergency department with a painful swollen mass in the left buttock diagnosed as an abscess. She has been admitted for surgical consultation and intervention. Patient endorsed rapid progression of this abscess over prior 48 hours. She was in the hospital a few weeks ago for perineal abscess. She denies fevers or chills. Her last A1c was 11. [facility] History I have reviewed the patient's past medical history: Yes Medical History: Reports:: Diabetes Mellitus Type 1 Denies:: Cancer, Diabetes Mellitus Type 2, MRSA Laterality Cases: Bilateral: Myringotomy (Ear Tubes), Tonsillectomy Other Surgeries: Yes: Colonoscopy, , EGD, Tubal Ligation Amputation: No Fractures: No - *Social History Educational Level: Completed College Smoking Status: Current every day smoker Tobacco Type: cigarettes # Packs/Day (cigarettes): 1 #Yrs smoked (if former smoker): 11 Alcohol Intake: never Alcohol Intake Frequency:: other Substance Use Type: denies use Occupational Status: employed Housing: house Household Members: children, other - Psychiatric History Expresses thoughts of harming self/others: None Suicide Plan Description: No Plan *Family Hx:: Diabetes, Anemia, Hypertension Review of Systems - Review of Systems Review of systems:: pertinent systems reviewed and negative unless documented below - *Neurologic Denies frequent falls, Denies seizure-like activity Meds Home Medications Medication Instructions Recorded Confirmed Type lisinopril 20 mg tablet 20 mg PO ONCE 05/25/17 06/14/17 History Insulin Glargine,Hum.rec.anlog 40 unit SQ BID 06/14/17 06/14/17 History [Lantus Insulin 100units/mL 10mL vial] Insulin Lispro [Humalog] 100 unit SQ QID 06/14/17 06/14/17 History Propranolol HCl [Inderal 20mg 20 mg PO BID 06/14/17 06/14/17 History tablet] Allergies Allergy/AdvReac Type Severity Reaction Status Date / Time Iodinated Contrast Media - Allergy Intermediate I-HIVES Verified 06/08/17 14:02 Oral and [Iodinated Contrast Media - IV Dye] latex Allergy Intermediate I-HIVES Verified 06/08/17 14:02 levofloxacin [From LEVAQUIN] Allergy Unknown I-HIVES Verified 06/08/17 14:02 tramadol [From ULTRAM] Allergy Unknown HIVES/N/V Verified 06/08/17 14:02 ANTIHISTAMINE Allergy Unknown SOB Uncoded 06/08/17 14:02 Exam Vital signs and Labs for Last 24 Hours: Temp Pulse Resp BP Pulse Ox 98.6 F 105 H 18 113/64 98 06/15/17 04:00 06/15/17 04:00 06/15/17 04:00 06/15/17 04:00 06/15/17 04:00 Laboratory Results - last 24 hr 06/14/17 22:29: POC Glucose 282 06/14/17 22:50: Lactic Acid Fup @ 4Hr 1.0 06/15/17 02:27: POC Glucose 237 Laboratory Results - last 24 hr 06/14/17 18:55: WBC 9.6, RBC 4.34, Hgb 12.9, Hct 39.9, MCV 92.0, MCH 29.7, MCHC 32.3, RDW 13.0, Plt Count 234, MPV 7.8, Neut % (Auto) 72.1, Lymph % (Auto) 20.8 , [place] % (Auto) 5.3, Eos % (Auto) 1.1, Baso % (Auto) 0.6, Neut # (Auto) 6.9, Lymph # (Auto) 2.0, [place] # (Auto) 0.5, Eos # (Auto) 0.1, Baso # (Auto) 0.1 06/14/17 18:55: Sodium 132 L, Potassium 3.8, Chloride 94 L, Carbon Dioxide 19 L , Anion Gap 22.8 H, BUN 15, Creatinine 1.25 H, Estimated Creat Clear 100, Estimated GFR 51 L, Est GFR ( Amer) 61, Glucose 390 H, Calcium 9.5, T
--- NOTE | 2017-06-15 07:28 | HMH.GSCON ---
*Admission Date: 06/14/17 *Chief complaint: Abscess *History of present illness: Patient is a 27-year-old diabetic smoker white female. 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 At that time her glucose was markedly elevated and recommendation was for admission but the patient refused. She had about a 4 mm wound in the left suprapubic/perineal area which caused her excruciating pain. She failed to keep several appointments in the office but had ultimately followed up a couple weeks ago and had completely healed although patient still requested some narcotics. She was scheduled to be seen in the office this past Thursday but did not keep the appointment. She presented to the emergency department yesterday evening with left gluteal abscess. She was admitted for inpatient management and surgical consultation. She denies fevers or chills. Serum glucose on presentation was 390. Her last A1c was 11. Review of Systems - Constitutional Denies chills - Eyes Denies change in vision - ENT Denies abnormal hearing - *Cardiovascular Denies chest pain - *Respiratory Denies shortness of breath - *Gastrointestinal Denies abdominal pain - *Musculoskeletal Denies abnormal walking - Integumentary/Breasts Reports boil - *Neurologic Denies frequent falls, Denies seizure-like activity [facility] History Medical History: Reports:: Diabetes Mellitus Type 1 Denies:: Cancer, Diabetes Mellitus Type 2, MRSA Laterality Cases: Bilateral: Myringotomy (Ear Tubes), Tonsillectomy Other Surgeries: Yes: Colonoscopy, , EGD, Tubal Ligation Amputation: No Fractures: No - *Social History Educational Level: Completed College Smoking Status: Current every day smoker Tobacco Type: cigarettes # Packs/Day (cigarettes): 1 #Yrs smoked (if former smoker): 11 Alcohol Intake: never Alcohol Intake Frequency:: other Substance Use Type: denies use Occupational Status: employed Housing: house Household Members: children, other - Psychiatric History Expresses thoughts of harming self/others: None Suicide Plan Description: No Plan *Family Hx:: Diabetes, Anemia, Hypertension Meds Home Medications Medication Instructions Recorded Confirmed Type lisinopril 20 mg tablet 20 mg PO ONCE 05/25/17 06/14/17 History Insulin Glargine,Hum.rec.anlog 40 unit SQ BID 06/14/17 06/14/17 History [Lantus Insulin 100units/mL 10mL vial] Insulin Lispro [Humalog] 100 unit SQ QID 06/14/17 06/14/17 History Propranolol HCl [Inderal 20mg 20 mg PO BID 06/14/17 06/14/17 History tablet] Allergies Allergy/AdvReac Type Severity Reaction Status Date / Time Iodinated Contrast Media - Allergy Intermediate I-HIVES Verified 06/08/17 14:02 Oral and [Iodinated Contrast Media - IV Dye] latex Allergy Intermediate I-HIVES Verified 06/08/17 14:02 levofloxacin [From LEVAQUIN] Allergy Unknown I-HIVES Verified 06/08/17 14:02 tramadol [From ULTRAM] Allergy Unknown HIVES/N/V Verified 06/08/17 14:02 ANTIHISTAMINE Allergy Unknown SOB Uncoded 06/08/17 14:02 Exam Vital signs and Labs for Last 24 Hours: Temp Pulse Resp BP Pulse Ox 98.6 F 105 H 18 113/64 98 06/15/17 04:00 06/15/17 04:00 06/15/17 04:00 06/15/17 04:00 06/15/17 04:00 Laboratory Results - last 24 hr 06/14/17 22:29: POC Glucose 282 06/14/17 22:50: Lactic Acid Fup @ 4Hr 1.0 06/15/17 02:27: POC Glucose 237 06/15/17 05:55: WBC 7.6, RBC 3.59 L, Hct 32.2 L, MCV 89.7, MCH 29.3, MCHC 32.7, RDW 13.0, Plt Count 213, MPV 7.3 L, Neut % (Auto) 65.5, Lymph % (Auto) 25.3, [place] % (Auto) 7.4, Eos % (Auto) 1.4, Baso % (Auto) 0.4, Neut # (Auto) 5.0, Lymph # (Auto) 1.9, [place] # (Auto) 0.6, Eos # (Auto) 0.1, Baso # (Auto) 0.0 06/15/17 05:55: Sodium 137, Potassium 3.1 L, Chloride 101, Carbon Dioxide 26 D, Anion Gap 13.1, BUN 8
--- NOTE | 2017-06-15 07:29 | HMH.PHAVTE ---
[facility] Pharm[facility] VTE Monitoring - Patient Demographics Admission date: 06/14/17 Report Date: 06/15/17 Time: 07:29 Allergies/Adverse Reactions: Patient Allergies Iodinated Contrast Media - Oral and [Iodinated Contrast Media - IV Dye] Allergy (Intermediate, Verified 06/08/17 14:02) I-HIVES latex Allergy (Intermediate, Verified 06/08/17 14:02) I-HIVES levofloxacin [From LEVAQUIN] Allergy (Unknown, Verified 06/08/17 14:02) I-HIVES tramadol [From ULTRAM] Allergy (Unknown, Verified 06/08/17 14:02) HIVES/N/V ANTIHISTAMINE Allergy (Unknown, Uncoded 06/08/17 14:02) SOB Height: 1.73 m Weight: 91.427 kg Patient Problems: Current Active Problems Insulin dependent diabetes mellitus (Acute) Abscess of buttock, left (Acute) - VTE Risk Labs: VTE Related Lab Results Hgb 12.9 g/dL (12.2-16.2) 06/14/17 18:55 Hct 32.2 % (37.0-47.0) L 06/15/17 05:55 Plt Count 213 K/mm3 (142-424) 06/15/17 05:55 BUN 8 mg/dL (7-18) D 06/15/17 05:55 Creatinine 0.81 mg/dL (0.55-1.02) D 06/15/17 05:55 Estimated Creat Clear 148 mL/min (0-300) 06/15/17 05:55 Was VTE Risk Assessment Performed: Yes VTE Score: 0 VTE Risk Level: Very Low Risk - Prophylaxis VTE Prophylaxis Ordered?: Yes Types of VTE Prophylaxis: TEDS Knee High Location of Applied Device: Bilateral Lower Extremeties - VTE Diagnosis Confirmed Treatment or plan recommended: Continue Current Treatment
--- NOTE | 2017-06-15 07:32 | P.CONS_ITS ---
*Admission Date: 06/14/17 *Chief complaint: Abscess *History of present illness: Patient is a 27-year-old diabetic smoker white female. 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 At that time her glucose was markedly elevated and recommendation was for admission but the patient refused. She had about a 4 mm wound in the left suprapubic/perineal area which caused her excruciating pain. She failed to keep several appointments in the office but had ultimately followed up a couple weeks ago and had completely healed although patient still requested some narcotics. She was scheduled to be seen in the office this past Thursday but did not keep the appointment. She presented to the emergency department yesterday evening with left gluteal abscess. She was admitted for inpatient management and surgical consultation. She denies fevers or chills. Serum glucose on presentation was 390. Her last A1c was 11. Review of Systems - Constitutional Denies chills - Eyes Denies change in vision - ENT Denies abnormal hearing - *Cardiovascular Denies chest pain - *Respiratory Denies shortness of breath - *Gastrointestinal Denies abdominal pain - *Musculoskeletal Denies abnormal walking - Integumentary/Breasts Reports boil - *Neurologic Denies frequent falls, Denies seizure-like activity [facility] History Medical History: Reports:: Diabetes Mellitus Type 1 Denies:: Cancer, Diabetes Mellitus Type 2, MRSA Laterality Cases: Bilateral: Myringotomy (Ear Tubes), Tonsillectomy Other Surgeries: Yes: Colonoscopy, , EGD, Tubal Ligation Amputation: No Fractures: No - *Social History Educational Level: Completed College Smoking Status: Current every day smoker Tobacco Type: cigarettes # Packs/Day (cigarettes): 1 #Yrs smoked (if former smoker): 11 Alcohol Intake: never Alcohol Intake Frequency:: other Substance Use Type: denies use Occupational Status: employed Housing: house Household Members: children, other - Psychiatric History Expresses thoughts of harming self/others: None Suicide Plan Description: No Plan *Family Hx:: Diabetes, Anemia, Hypertension Meds Home Medications Medication Instructions Recorded Confirmed Type lisinopril 20 mg tablet 20 mg PO ONCE 05/25/17 06/14/17 History Insulin Glargine,Hum.rec.anlog 40 unit SQ BID 06/14/17 06/14/17 History [Lantus Insulin 100units/mL 10mL vial] Insulin Lispro [Humalog] 100 unit SQ QID 06/14/17 06/14/17 History Propranolol HCl [Inderal 20mg 20 mg PO BID 06/14/17 06/14/17 History tablet] Allergies Allergy/AdvReac Type Severity Reaction Status Date / Time Iodinated Contrast Media - Allergy Intermediate I-HIVES Verified 06/08/17 14:02 Oral and [Iodinated Contrast Media - IV Dye] latex Allergy Intermediate I-HIVES Verified 06/08/17 14:02 levofloxacin [From LEVAQUIN] Allergy Unknown I-HIVES Verified 06/08/17 14:02 tramadol [From ULTRAM] Allergy Unknown HIVES/N/V Verified 06/08/17 14:02 ANTIHISTAMINE Allergy Unknown SOB Uncoded 06/08/17 14:02 Exam Vital signs and Labs for Last 24 Hours: Temp Pulse Resp BP Pulse Ox 98.6 F 105 H 18 113/64 98 06/15/17 04:00 06/15/17 04:00 06/15/17 04:00 06/15/17 04:
[2017-06-15 07:57] LABS: Hemoglobin 10.5 g/dL (12.2-16.2)
--- NOTE | 2017-06-15 11:00 | P.PN_ITS ---
[facility] Anesthesia Checklist - Patient Identification Patient Identification: Arm Band, Verbal (Name & ) - Structural Data Admitted From: Inpatient Planned Operative Procedure/s: i&d abcess Consent for Planned Operative Procedure(s) Verified: Yes Verified Documents: Surgical Consent - NPO Status Verified Time NPO: 00:00 - Chart Verification Results Verified: CBC, BMP - Additional verifications Patient : No Anesthesia Reactions: No Hx Blood Transfusions: No Blood Transfusion Reaction: No Cephalosporin Allergy: No Previous Colonoscopy: No - Cardiovascular Assessment Heart Sounds: S1 & S2 Pulse Strength: Baseline Pulse Rhythm: Regular Peripheral Edema: No - Airway Assessment C-Spine Mobility Assessed: Yes TMJ Mobility Assessed: Yes Dentition: Good Dentition - Neurological Assessment Level of Consciousness: Awake, Alert, Appropriate Hx Seizures: No Numbness or tingling in extremities: No - Anesthesia Plan Anesthesia Risk discussed: Yes ASA Class: II Anesthesia Type: General [facility] Anesthesia HX I have reviewed the patient's past medical history: Yes Medical History: Reports:: Diabetes Mellitus Type 1, Hypertension Denies:: Cancer, Diabetes Mellitus Type 2, MRSA Laterality Cases: Bilateral: Myringotomy (Ear Tubes), Tonsillectomy Other Surgeries: Yes: Colonoscopy, , EGD, Tubal Ligation Amputation: No Fractures: No *Family Hx:: Diabetes, Anemia, Hypertension
--- NOTE | 2017-06-15 11:40 | HMH.OPNOTE ---
Date of procedure: 06/15/17 Pre-op Diagnosis:: Soft tissue infection with abscess of left gluteal region Post-op diagnosis:: same Procedure performed:: Incision and drainage of left gluteal abscess with debridement of skin and subcutaneous tissues Surgeon:: Elijah Weiner MD Bundle Tier And Labeler(s):: None WATCH CRYSTAL GRINDER:: Josemanuel Quintero Anesthesia: LMA Estimated blood loss (mL): 25 Clinical Note:: Patient is a 27-year-old reportedly noncompliant diabetic female. Relatively recently she had a very small suprapubic abscess which required small limited incision and drainage and this healed without difficulty. She had presented to the emergency department yesterday evening with left gluteal abscess. She states that she thought it may be an ingrown hair. There was quite significant and she was admitted for inpatient management, pain control, glucose control, and surgical consultation. She was found to have a very large indurated fluctuant draining wound on the left gluteal region. This was clearly a new problem from her previous issue. Plan was made for incision and drainage and debridement. Operative findings:: Large left gluteal abscess. This appeared to be skin infection with subcutaneous abscess. This was not perirectal and this was separate from her prior focal infection side. Operative note:: Consent was obtained and patient was taken to the operating room. General anesthesia was induced via LMA. She was positioned in a right lateral position. Area was prepped and draped. Punctate draining wound was probed with a hemostat. There is a large amount of thick pus and debris which exuded from the wound. It was quite foul-smelling. Cultures were sent. The wound was probed and there is underlying abscess cavity tracking laterally and superiorly. Limited incision was made to unroofed the underlying abscess cavity. This appeared to be superficial skin infection contained within the subcutaneous tissues without perirectal or deeper involvement. However, it was quite widespread. Some necrotic appearing subcutaneous tissue and skin was debrided using electrocautery. This allowed for opening of the wound. Wound was vigorously probed to check for any deep tracking of which none was obviously noted. Overall size of the wound measured approximately 3 cm in diameter and 3 cm in depth. Wound was thoroughly irrigated. Local anesthetic was infiltrated. Stasis was achieved with electrocautery. Wound was packed with moistened saline gauze and clean dry sterile dressing was applied. Condition: stable Disposition: PACU Complications:: None
--- NOTE | 2017-06-15 11:46 | PC.NURSE ---
PT OFF UNIT AT THIS TIME. IN SURGERY.
--- NOTE | 2017-06-15 11:51 | P.PN_ITS ---
[facility] Anesthesia Record Part I Intake, IV Amount: 500 Estimated blood loss (mL): 10 Urine output (mL): 0 Blood Products used (#): none Blood Pressure: 103/59 SaO2: 98 Pulse Rate: 79 Respiratory Rate: 18 Temperature: 97.6 F Patient is:: Drowsy Stable to PACU at:: 11:48
--- NOTE | 2017-06-15 11:52 | P.PN_ITS ---
[facility] Anesthesia Record Part II Discharge Time: 12:18 Destination: Nursing Department PACU nurse assessment reviewed?: Yes Patient Condition:: Good Anesthesia Complications:: None
--- NOTE | 2017-06-15 13:12 | PC.NURSE ---
1148-REPORT RECEIVED FROM SUBHASH ANDREWS/IRVINGRN
--- NOTE | 2017-06-15 13:20 | PC.NURSE ---
1216-DETAILED REPORT CALLED TO PETEYRN
--- NOTE | 2017-06-15 13:20 | SUR.PHASEI ---
1220-PT TRANSPORTED TO 2ND FLOOR VIA HOSPITAL BED PER RAJESHRN & VONDA VILLATORO W/RAILS UP. PT LEFT IN CARE OF VONDA ANGELO. UPON ARRIVAL TO FLOOR, CHECKED PT'S FSBS WITH RESULTS OF 273. NOTIFIED POCKET CREASER, PT TO BE MEDICATED ORDERED PRIOR TO SURGERY. VSS. PT STABLE.
[2017-06-15 15:36] LABS: POC Glucose,Bedside 218 mg/dL
[2017-06-15 15:36] LABS: POC Glucose,Bedside 273 mg/dL
--- NOTE | 2017-06-15 16:23 | HMH.PHACONS ---
- Pharmacy Consult Date: 06/15/17 Time: 16:23 Referring provider: DR. MAYES Reason for Consult:: VANCOMYCIN DOSING Allergies and ADEs:: Allergies Allergy/AdvReac Type Severity Reaction Status Date / Time Iodinated Contrast Media - Allergy Intermediate I-HIVES Verified 06/08/17 14:02 Oral and [Iodinated Contrast Media - IV Dye] latex Allergy Intermediate I-HIVES Verified 06/08/17 14:02 levofloxacin [From LEVAQUIN] Allergy Unknown I-HIVES Verified 06/08/17 14:02 tramadol [From ULTRAM] Allergy Unknown HIVES/N/V Verified 06/08/17 14:02 ANTIHISTAMINE Allergy Unknown SOB Uncoded 06/08/17 14:02 Home Medications:: Home Medications Medication Instructions Recorded Confirmed Type Insulin Glargine,Hum.rec.anlog 40 unit SQ BID 06/14/17 06/14/17 History [Lantus Insulin 100units/mL 10mL vial] Insulin Lispro [Humalog] 100 unit SQ QID 06/14/17 06/14/17 History Propranolol HCl [Inderal 20mg 20 mg PO BID 06/14/17 06/14/17 History tablet] Lisinopril [Lisinopril 20mg Tab] 20 mg PO DAILY 06/15/17 06/15/17 History Height: 1.73 m Weight: 91.427 kg Laboratory Results:: Laboratory Results - last 24 hr 06/14/17 22:29: POC Glucose 282 06/14/17 22:50: Lactic Acid Fup @ 4Hr 1.0 06/15/17 02:27: POC Glucose 237 06/15/17 05:55: WBC 7.6, RBC 3.59 L, Hgb 10.5 L D, Hct 32.2 L, MCV 89.7, MCH 29.3, MCHC 32.7, RDW 13.0, Plt Count 213, MPV 7.3 L, Neut % (Auto) 65.5, Lymph % (Auto) 25.3, [place] % (Auto) 7.4, Eos % (Auto) 1.4, Baso % (Auto) 0.4, Neut # (Auto) 5.0, Lymph # (Auto) 1.9, [place] # (Auto) 0.6, Eos # (Auto) 0.1, Baso # (Auto) 0.0 06/15/17 05:55: Sodium 137, Potassium 3.1 L, Chloride 101, Carbon Dioxide 26 D, Anion Gap 13.1, BUN 8 D, Creatinine 0.81 D, Estimated Creat Clear 148, Estimated GFR 84, Est GFR ( Amer) 101 D, Glucose 197 H D 06/15/17 09:14: POC Glucose 218 06/15/17 12:21: POC Glucose 273 Medical History: Reports:: Diabetes Mellitus Type 1, Hypertension Denies:: Cancer, Diabetes Mellitus Type 2, MRSA, Seizures Assessment and Plan (1) Abscess of buttock, left Current visit: Yes Status: Acute Category: Medical Code(s): L02.31 - Cutaneous abscess of buttock (2) Insulin dependent diabetes mellitus Current visit: Yes Status: Acute Category: Medical Code(s): E11.9 - Type 2 diabetes mellitus without complications; Z79.4 - termite exterminator (current) use of insulin - Assessment and plan all Dx Assessment and Plan for all problems:: BASED ON PATIENT'S FACTORS, RECOMMEND STARTING WITH VANCOMYCIN 1750 MG Q12H AT THIS TIME. PHARMACY WILL FOLLOW DAILY AND ADJUST APPROPRIATE. AUSTIN MALIK, PHARMD
--- NOTE | 2017-06-15 16:26 | P.CONPHA_ITS ---
- Pharmacy Consult Date: 06/15/17 Time: 16:23 Referring provider: DR. MAYES Reason for Consult:: VANCOMYCIN DOSING Allergies and ADEs:: Allergies Allergy/AdvReac Type Severity Reaction Status Date / Time Iodinated Contrast Media - Allergy Intermediate I-HIVES Verified 06/08/17 14:02 Oral and [Iodinated Contrast Media - IV Dye] latex Allergy Intermediate I-HIVES Verified 06/08/17 14:02 levofloxacin [From LEVAQUIN] Allergy Unknown I-HIVES Verified 06/08/17 14:02 tramadol [From ULTRAM] Allergy Unknown HIVES/N/V Verified 06/08/17 14:02 ANTIHISTAMINE Allergy Unknown SOB Uncoded 06/08/17 14:02 Home Medications:: Home Medications Medication Instructions Recorded Confirmed Type Insulin Glargine,Hum.rec.anlog 40 unit SQ BID 06/14/17 06/14/17 History [Lantus Insulin 100units/mL 10mL vial] Insulin Lispro [Humalog] 100 unit SQ QID 06/14/17 06/14/17 History Propranolol HCl [Inderal 20mg 20 mg PO BID 06/14/17 06/14/17 History tablet] Lisinopril [Lisinopril 20mg Tab] 20 mg PO DAILY 06/15/17 06/15/17 History Height: 1.73 m Weight: 91.427 kg Laboratory Results:: Laboratory Results - last 24 hr 06/14/17 22:29: POC Glucose 282 06/14/17 22:50: Lactic Acid Fup @ 4Hr 1.0 06/15/17 02:27: POC Glucose 237 06/15/17 05:55: WBC 7.6, RBC 3.59 L, Hgb 10.5 L D, Hct 32.2 L, MCV 89.7, MCH 29.3, MCHC 32.7, RDW 13.0, Plt Count 213, MPV 7.3 L, Neut % (Auto) 65.5, Lymph % (Auto) 25.3, [place] % (Auto) 7.4, Eos % (Auto) 1.4, Baso % (Auto) 0.4, Neut # ( Auto) 5.0, Lymph # (Auto) 1.9, [place] # (Auto) 0.6, Eos # (Auto) 0.1, Baso # (Auto ) 0.0 06/15/17 05:55: Sodium 137, Potassium 3.1 L, Chloride 101, Carbon Dioxide 26 D , Anion Gap 13.1, BUN 8 D, Creatinine 0.81 D, Estimated Creat Clear 148, Estimated GFR 84, Est GFR ( Amer) 101 D, Glucose 197 H D 06/15/17 09:14: POC Glucose 218 06/15/17 12:21: POC Glucose 273 Medical History: Reports:: Diabetes Mellitus Type 1, Hypertension Denies:: Cancer, Diabetes Mellitus Type 2, MRSA, Seizures Assessment and Plan (1) Abscess of buttock, left Current visit: Yes Status: Acute Category: Medical Code(s): L02.31 - Cutaneous abscess of buttock (2) Insulin dependent diabetes mellitus Current visit: Yes Status: Acute Category: Medical Code(s): E11.9 - Type 2 diabetes mellitus without complications; Z79.4 - skilled nursing (current) use of insulin - Assessment and plan all Dx Assessment and Plan for all problems:: BASED ON PATIENT'S FACTORS, RECOMMEND STARTING WITH VANCOMYCIN 1750 MG Q12H AT THIS TIME. PHARMACY WILL FOLLOW DAILY AND ADJUST APPROPRIATE. AUSTIN MALIK, PHARMD
--- NOTE | 2017-06-15 20:12 | PC.NURSE ---
PT IS RESTING IN BED, RECEIVING PAIN MEDICATION NEEDED, EATING WELL, PT'S FSBS HAVE BEEN ELEVATED, DRESSING TO THE LEFT BUTTOCKS C/D/I, PT HAS BEEN OOB AMBULATING TO THE BATHROOM, TOLERATING DIABETIC DIET, VSS, WILL CONTINUE TO MONITOR.
[2017-06-15 21:13] LABS: POC Glucose,Bedside 277 mg/dL
[2017-06-16 00:23] VITALS: BP 121/70; PULSE 83; RESP 16; TEMP 37.1; O2SAT 98
--- NOTE | 2017-06-16 03:26 | PC.NURSE ---
LAYING IN BED RESTING. HAS BEEN UP TO RESTROOM THIS SHIFT. TOLERATED WELL. HAS ASK FOR PAIN MEDS ORDERED Q 4 PRN. HAS SOME SEROSANGUINEOUS DRAINAGE. DSG CHANGED THIS SHIFT, TOLERATED WELL. LUNGS ARE CLEAR, RESP EVEN AND NONLABORED. POSITIVE BOWEL SOUNDS. IV IS PATENT. ENCOURAGED TO USE CALL LIGHT IF ANY NEEDS. BED LOCKED IN LOW POSITION, SIDE RALES UP X 2. CALL LIGHT WITHIN REACH. WILL CONTINUE TO MONITOR.
[2017-06-16 05:09] VITALS: BP 149/93; PULSE 89; RESP 18; TEMP 36.7; O2SAT 97
--- NOTE | 2017-06-16 06:41 | P.PN_ITS ---
Internal Medicine - PN: Subj *Date: 06/16/17 *Time: 06:40 Interval history: Patient complains of pain at surgical site. Nursing staff reports Dilaudid seems to decrease in effectiveness about 45 minutes prior to patient's next dose. Blood sugars have remained above 200. Patient did receive her home dose of Lantus last night and tells me on average she takes 25 units of her short acting insulin at mealtimes. She has been receiving a medium dose intensity sliding scale here. Exam Vital signs and Labs for Last 24 Hours: Temp Pulse Resp BP Pulse Ox 98.1 F 89 18 149/93 97 06/16/17 05:09 06/16/17 05:09 06/16/17 05:09 06/16/17 05:09 06/16/17 05:09 Laboratory Results - last 24 hr 06/14/17 22:29: POC Glucose 282 06/15/17 02:27: POC Glucose 237 06/15/17 05:55: WBC 7.6, RBC 3.59 L, Hgb 10.5 L D, Hct 32.2 L, MCV 89.7, MCH 29.3, MCHC 32.7, RDW 13.0, Plt Count 213, MPV 7.3 L, Neut % (Auto) 65.5, Lymph % (Auto) 25.3, [place] % (Auto) 7.4, Eos % (Auto) 1.4, Baso % (Auto) 0.4, Neut # ( Auto) 5.0, Lymph # (Auto) 1.9, [place] # (Auto) 0.6, Eos # (Auto) 0.1, Baso # (Auto ) 0.0 06/15/17 05:55: Sodium 137, Potassium 3.1 L, Chloride 101, Carbon Dioxide 26 D , Anion Gap 13.1, BUN 8 D, Creatinine 0.81 D, Estimated Creat Clear 148, Estimated GFR 84, Est GFR ( Amer) 101 D, Glucose 197 H D 06/15/17 09:14: POC Glucose 218 06/15/17 12:21: POC Glucose 273 06/15/17 20:52: POC Glucose 277 I & O for Last 24 hours: Intake & Output 06/13/17 06/14/17 06/15/17 06/16/17 11:59 11:59 11:59 11:59 Intake Total 1130 / 1130 2409 / 2409 Output Total 400 / 400 900 / 900 Balance 730 / 730 1509 / 1509 Weight 201 lb 9 oz 201 lb 8.992 oz Microbiology Reports for the Last 24 Hours: Microbiology 06/15/17 11:25 Buttock Gram Stain - Final Narrative: She appears comfortable. Lungs are clear. Heart has a regular rate and rhythm Assessment and Plan (1) Abscess of buttock, left Current visit: Yes Status: Acute Category: Medical Code(s): L02.31 - Cutaneous abscess of buttock (2) Insulin dependent diabetes mellitus Current visit: Yes Status: Acute Category: Medical Code(s): E11.9 - Type 2 diabetes mellitus without complications; Z79.4 - correction (current) use of insulin - Assessment and plan all Dx Assessment and Plan for all problems:: Postoperative care per surgical service. I am going to increase the patient's sliding scale insulin.
--- NOTE | 2017-06-16 07:00 | P.PN_ITS ---
Subjective Patient reports: still having pain (She is having pain and nausea. Patient states the dilaudid only works for her pain about 45 minutes.), nausea Exam Vital signs and Labs for Last 24 Hours: Temp Pulse Resp BP Pulse Ox 98.1 F 89 18 149/93 97 06/16/17 05:09 06/16/17 05:09 06/16/17 05:09 06/16/17 05:09 06/16/17 05:09 Laboratory Results - last 24 hr 06/15/17 05:55: Hgb 10.5 L D 06/15/17 09:14: POC Glucose 218 06/15/17 12:21: POC Glucose 273 06/15/17 20:52: POC Glucose 277 I & O for Last 24 hours: Intake & Output 06/13/17 06/14/17 06/15/17 06/16/17 11:59 11:59 11:59 11:59 Intake Total 1130 / 1130 2409 / 2409 Output Total 400 / 400 900 / 900 Balance 730 / 730 1509 / 1509 Weight 201 lb 9 oz 201 lb 8.992 oz Microbiology Reports for the Last 24 Hours: Microbiology 06/15/17 11:25 Buttock Gram Stain - Final - *Routine Skin Exam Comments: Wound still packed. Quite persistent erythema and induration on gluteal area. Progress Note: A&P (1) Abscess of buttock, left Status: Acute Assessment and plan: Plan to add oral pain meds for longer acting pain control. Use hydromorphone for breakthrough. Due to persistent erythema and induration with marked ongoing evidence of soft tissue infection continue inpatient IV antibiotcs ( Zosyn and Vancomycin). Will see how dressing changes go today. Current Visit: Yes (2) Insulin dependent diabetes mellitus Status: Acute Current Visit: Yes
[2017-06-16 07:21] LABS: POC Glucose,Bedside 318 mg/dL
[2017-06-16 07:53] VITALS: BP 135/80; PULSE 90; RESP 18; TEMP 37.2; O2SAT 96
[2017-06-16 11:04] LABS: POC Glucose,Bedside 198 mg/dL
[2017-06-16 11:35] VITALS: BP 125/69; PULSE 79; RESP 18; TEMP -13.8; TEMP 7.2; O2SAT 96
[2017-06-16 15:31] VITALS: BP 129/81; PULSE 78; RESP 18; TEMP 36.8; O2SAT 98
[2017-06-16 19:59] VITALS: BP 129/84; PULSE 74; RESP 18; TEMP 36.5; O2SAT 100
--- NOTE | 2017-06-16 20:37 | PC.NURSE ---
PT IS RESTING IN BED, RECEIVING PAIN MEDICATION NEEDED. PT WAS PRE-MEDICATED BEFORE DRESSING CHANGE. DRESSING CHANGE WAS LATE B/C PT HAD 2 IV ACCESS INFILTRATE THIS SHIFT AND PT REFUSED TO HAVE DRESSING CHANGE W/O PAIN MEDICATION BEFORE. DRESSING CHANGE WAS DONE AT 1900. WOUND WAS PACKED WITH SALINE SOAKED KERLIX, REINFORCED WITH 4X4, ABD PAD AND TAPE. PT TOLERATED PACKING WELL. PT STATED SHE WOULD GET UP TO TAKE SHOWER IN THE MORNING BEFORE HER NEXT DRESSING CHANGE. REPORT HANDED OFF TO NIGHT NURSE.
[2017-06-16 21:38] LABS: POC Glucose,Bedside 266 mg/dL
[2017-06-16 23:31] LABS: Vancomycin,Trough 7.9 mcg/ml (10.0-20.0)
[2017-06-17] VITALS (7 sets, daily range): BP systolic 136–149; BP diastolic 71–98; PULSE 71–94; RESP 16–22; TEMP 36.1–36.8; O2SAT 99–100
--- NOTE | 2017-06-17 04:21 | PC.NURSE ---
LAying in bed resting at this time. Has had morphine 1 time so far this shift and norco 1 time. Pain has been managed well. [place] [facility] per pt request. Has been up to restroom several times without complication. Lungs are clear, resp even and nonlabored. Iv is patent. Dsg is still intact and dry at this time. Vancomycin dosage did not change per [facility]. this shift. Patient has no needs at this time. WIll continue to monitor. Encouraged to use call light if needs.
--- NOTE | 2017-06-17 04:58 | PC.NURSE ---
Patient refused a dressing change. States does not want to deal with the pain at this time. Instructed would be medicated 1st. Educated on risk of infection. Still Refused but request pain medication.
[2017-06-17 06:30] LABS: POC Glucose,Bedside 144 mg/dL
--- NOTE | 2017-06-17 07:01 | P.PN_ITS ---
Internal Medicine - PN: Subj *Date: 06/17/17 *Time: 06:59 Interval history: Patient tells me her pain is better. Blood sugars are trending down Exam Vital signs and Labs for Last 24 Hours: Temp Pulse Resp BP Pulse Ox 98.1 F 79 18 136/94 100 06/17/17 04:00 06/17/17 04:00 06/17/17 04:00 06/17/17 04:00 06/17/17 04:00 Laboratory Results - last 24 hr 06/15/17 17:37: POC Glucose 318 06/16/17 06:19: POC Glucose 198 06/16/17 21:03: POC Glucose 266 06/16/17 23:00: Vancomycin Trough 7.9 L 06/17/17 06:20: POC Glucose 144 Laboratory Results - last 24 hr 06/15/17 17:37: POC Glucose 318 06/16/17 06:19: POC Glucose 198 06/16/17 21:03: POC Glucose 266 06/16/17 23:00: Vancomycin Trough 7.9 L 06/17/17 06:20: POC Glucose 144 I & O for Last 24 hours: Intake & Output 06/14/17 06/15/17 06/16/17 06/17/17 11:59 11:59 11:59 11:59 Intake Total 1130 / 1130 2649 / 2649 360 / 360 Output Total 400 / 400 900 / 900 Balance 730 / 730 1749 / 1749 360 / 360 Weight 201 lb 9 oz 201 lb 8.992 oz Microbiology Reports for the Last 24 Hours: Microbiology 06/15/17 11:25 Buttock Gram Stain - Final 06/15/17 11:25 Buttock Abscess Culture - Preliminary Staphylococcus aureus Assessment and Plan (1) Abscess of buttock, left Current visit: Yes Status: Acute Category: Medical Code(s): L02.31 - Cutaneous abscess of buttock (2) Insulin dependent diabetes mellitus Current visit: Yes Status: Acute Category: Medical Code(s): E11.9 - Type 2 diabetes mellitus without complications; Z79.4 - skilled nursing (current) use of insulin - Assessment and plan all Dx Assessment and Plan for all problems:: No change to insulin dosing at this time.
[2017-06-17 07:42] LABS: POC Glucose,Bedside 175 mg/dL
[2017-06-17 07:42] LABS: POC Glucose,Bedside 184 mg/dL
--- NOTE | 2017-06-17 07:45 | HMH.GSPN ---
Subjective Patient reports: feels better (Pain is less. States dressing change not as painful anticipated.) Exam Vital signs and Labs for Last 24 Hours: Temp Pulse Resp BP Pulse Ox 98.1 F 79 18 136/94 100 06/17/17 04:00 06/17/17 04:00 06/17/17 04:00 06/17/17 04:00 06/17/17 04:00 Laboratory Results - last 24 hr 06/16/17 06:19: POC Glucose 198 06/16/17 12:12: POC Glucose 184 06/16/17 16:55: POC Glucose 175 06/16/17 21:03: POC Glucose 266 06/16/17 23:00: Vancomycin Trough 7.9 L 06/17/17 06:20: POC Glucose 144 I & O for Last 24 hours: Intake & Output 06/14/17 06/15/17 06/16/17 06/17/17 11:59 11:59 11:59 11:59 Intake Total 1130 / 1130 2649 / 2649 360 / 360 Output Total 400 / 400 900 / 900 Balance 730 / 730 1749 / 1749 360 / 360 Weight 201 lb 9 oz 201 lb 8.992 oz Microbiology Reports for the Last 24 Hours: Microbiology 06/15/17 11:25 Buttock Gram Stain - Final 06/15/17 11:25 Buttock Abscess Culture - Preliminary Staphylococcus aureus - *Routine Skin Exam Comments: Wound dressed. Decreased erythema. Progress Note: A&P (1) Abscess of buttock, left Status: Acute Assessment and plan: Continue IV antibiotics for now and dressing changes. Discharge planning. Possible DC tomorrow on oral Zyvox and dressing changes. Current Visit: Yes (2) Insulin dependent diabetes mellitus Status: Acute Current Visit: Yes
--- NOTE | 2017-06-17 10:00 | PC.NURSE ---
did dressing at this time. used kerlex moisten with saline. patient tolerated well, placed gauze and abd pad for padding over site. offered to change dressing again before slot shift manager.
--- NOTE | 2017-06-17 10:45 | HMH.PHACONS ---
- Pharmacy Consult Date: 06/17/17 Time: 10:45 Referring provider: DR. MAYES Reason for Consult:: VANCOMYCIN TROUGH LEVEL Allergies and ADEs:: Allergies Allergy/AdvReac Type Severity Reaction Status Date / Time Iodinated Contrast Media - Allergy Intermediate I-HIVES Verified 06/08/17 14:02 Oral and [Iodinated Contrast Media - IV Dye] latex Allergy Intermediate I-HIVES Verified 06/08/17 14:02 levofloxacin [From LEVAQUIN] Allergy Unknown I-HIVES Verified 06/08/17 14:02 tramadol [From ULTRAM] Allergy Unknown HIVES/N/V Verified 06/08/17 14:02 ANTIHISTAMINE Allergy Unknown SOB Uncoded 06/08/17 14:02 Home Medications:: Home Medications Medication Instructions Recorded Confirmed Type Insulin Glargine,Hum.rec.anlog 40 unit SQ BID 06/14/17 06/14/17 History [Lantus Insulin 100units/mL 10mL vial] Insulin Lispro [Humalog] 100 unit SQ QID 06/14/17 06/14/17 History Propranolol HCl [Inderal 20mg 20 mg PO BID 06/14/17 06/14/17 History tablet] Lisinopril [Lisinopril 20mg Tab] 20 mg PO DAILY 06/15/17 06/15/17 History Height: 1.73 m Weight: 91.427 kg Laboratory Results:: Laboratory Results - last 24 hr 06/16/17 06:19: POC Glucose 198 06/16/17 12:12: POC Glucose 184 06/16/17 16:55: POC Glucose 175 06/16/17 21:03: POC Glucose 266 06/16/17 23:00: Vancomycin Trough 7.9 L 06/17/17 06:20: POC Glucose 144 Medical History: Reports:: Diabetes Mellitus Type 1, Hypertension Denies:: Cancer, Diabetes Mellitus Type 2, MRSA, Seizures Assessment and Plan (1) Abscess of buttock, left Current visit: Yes Status: Acute Category: Medical Code(s): L02.31 - Cutaneous abscess of buttock (2) Insulin dependent diabetes mellitus Current visit: Yes Status: Acute Category: Medical Code(s): E11.9 - Type 2 diabetes mellitus without complications; 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 ZOSYN WILL BE DISCONTINUED TODAY DUE TO POSITIVE CULTURE FOR MRSA. PHARMACY WILL FOLLOW DAILY AND ADJUST APPROPRIATE.
[2017-06-17 11:56] LABS: POC Glucose,Bedside 153 mg/dL
[2017-06-17 17:31] LABS: POC Glucose,Bedside 194 mg/dL
--- NOTE | 2017-06-17 18:47 | PC.NURSE ---
PATIENT HAS HAD A GOOD DAY. UP WALKING THE FLOOR, AND HAS BEEN OUTSIDE. SHE HAS HAD SOME COMPLAINTS OF PAIN, AND HAS RANG OUT NEEDED FOR PAIN MEDS. DRESSING PACKED POLYMEM PLACED OVER PACKING WHEN ABD PAD FELL OFF. PATIENT REQUESTD THAT SINCE IT WAS SMALLER. PATIENT WANTING TO BE DISCHARGED IN MORNING. VSS WILL CONTINUE TO MONITOR.
[2017-06-17 23:06] LABS: POC Glucose,Bedside 253 mg/dL
[2017-06-18] VITALS: BP 143/93; PULSE 75; RESP 20; TEMP 36.7; O2SAT 100
--- NOTE | 2017-06-18 01:30 | PC.NURSE ---
DRESSING CHANGE PERFORMED TO PATIENT'S LEFT GLUTEAL. WET-TO-DRY PACKING, COVERED WITH DRY DRESSING. PATIENT TOLERATED WELL AFTER BEING PRE-MEDICATION WITH PRN PAIN MEDICATION. WILL CONTINUE TO MONITOR.
[2017-06-18 03:55] VITALS: BP 139/73; PULSE 77; RESP 20; TEMP 36.7; O2SAT 100
[2017-06-18 06:32] LABS: POC Glucose,Bedside 142 mg/dL
--- NOTE | 2017-06-18 07:15 | HMH.ACPN2 ---
Internal Medicine - PN: Subj *Date: 06/18/17 *Time: 07:15 Interval history: Patient has no complaints morning. She has had significant improvement in her level of pain and is actually able to lay in bed normally today. Blood sugars have been adequately controlled except for yesterday evening with blood sugar of around 250. She blames this blood sugar on the candy bar she ate Exam Vital signs and Labs for Last 24 Hours: Temp Pulse Resp BP Pulse Ox 98.1 F 77 20 139/73 100 06/18/17 03:55 06/18/17 03:55 06/18/17 03:55 06/18/17 03:55 06/18/17 03:55 Laboratory Results - last 24 hr 06/16/17 12:12: POC Glucose 184 06/16/17 16:55: POC Glucose 175 06/17/17 11:36: POC Glucose 153 06/17/17 17:15: POC Glucose 194 06/17/17 20:55: POC Glucose 253 06/18/17 06:09: POC Glucose 142 I & O for Last 24 hours: Intake & Output 06/15/17 06/16/17 06/17/17 06/18/17 11:59 11:59 11:59 11:59 Intake Total 1130 / 1130 2649 / 2649 840 / 840 840 / 840 Output Total 400 / 400 900 / 900 300 / 300 400 / 400 Balance 730 / 730 1749 / 1749 540 / 540 440 / 440 Weight 201 lb 9 oz 201 lb 8.992 oz 201 lb 8.992 oz Microbiology Reports for the Last 24 Hours: Microbiology 06/15/17 11:25 Buttock Gram Stain - Final 06/15/17 11:25 Buttock Abscess Culture - Final Staphylococcus aureus Assessment and Plan (1) Abscess of buttock, left Current visit: Yes Status: Acute Category: Medical Code(s): L02.31 - Cutaneous abscess of buttock (2) Insulin dependent diabetes mellitus Current visit: Yes Status: Acute Category: Medical Code(s): E11.9 - Type 2 diabetes mellitus without complications; 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 She believes she can keep her blood sugars under control. She will follow-up with her primary care physician Dr. Reji Castaneda next week
[2017-06-18 07:49] VITALS: BP 158/94; PULSE 82; RESP 18; TEMP 37.4; O2SAT 100
[2017-06-18 08:00] VITALS: PULSE 82; RESP 18; O2SAT 100
--- NOTE | 2017-06-18 08:02 | HMH.GSPN ---
Subjective Patient reports: feels better, pain is less (Patient states she feels much better and is anxious to go home.) Exam Vital signs and Labs for Last 24 Hours: Temp Pulse Resp BP Pulse Ox 99.4 F 82 18 158/94 100 06/18/17 07:49 06/18/17 07:49 06/18/17 07:49 06/18/17 07:49 06/18/17 07:49 Laboratory Results - last 24 hr 06/17/17 11:36: POC Glucose 153 06/17/17 17:15: POC Glucose 194 06/17/17 20:55: POC Glucose 253 06/18/17 06:09: POC Glucose 142 I & O for Last 24 hours: Intake & Output 06/15/17 06/16/17 06/17/17 06/18/17 11:59 11:59 11:59 11:59 Intake Total 1130 / 1130 2649 / 2649 840 / 840 1200 / 1200 Output Total 400 / 400 900 / 900 300 / 300 800 / 800 Balance 730 / 730 1749 / 1749 540 / 540 400 / 400 Weight 201 lb 9 oz 201 lb 8.992 oz 201 lb 8.992 oz Microbiology Reports for the Last 24 Hours: Microbiology 06/15/17 11:25 Buttock Gram Stain - Final 06/15/17 11:25 Buttock Abscess Culture - Final Staphylococcus aureus - *Routine Skin Exam Comments: Erythema regressing. Still with induration. Progress Note: A&P (1) Abscess of buttock, left Status: Acute Assessment and plan: Okay for discharge home. Recommend once daily wet to dry packing. May be done through wound care as outpatient. Needs 10 days Zyvox. Current Visit: Yes (2) Insulin dependent diabetes mellitus Status: Acute Current Visit: Yes
--- NOTE | 2017-06-18 09:38 | HMH.DCSUM ---
General - General Admission date: 06/14/17 Discharge date: 06/18/17 HPI HPI: Patient is a 27-year-old diabetic smoker white female. I had actually seen her in the office several weeks ago after she had presented to the emergency department with a small suprapubic abscess and she underwent incision and drainage by the surgeon mortuary operations manager at that time. At that time her glucose was markedly elevated and recommendation was for admission but the patient refused. She had about a 4 mm wound in the left suprapubic/perineal area which caused her excruciating pain. She failed to keep several appointments in the office but had ultimately followed up a couple weeks ago and had completely healed although patient still requested some narcotics. She was scheduled to be seen in the office this past Thursday but did not keep the appointment. She presented to the emergency department yesterday evening with left gluteal abscess. She was admitted for inpatient management and surgical consultation. She denies fevers or chills. Serum glucose on presentation was 390. Her last A1c was 11. Objective Vital signs: Temp Pulse Resp BP Pulse Ox 99.4 F 82 18 158/94 100 06/18/17 07:49 06/18/17 07:49 06/18/17 07:49 06/18/17 07:49 06/18/17 07:49 Hospital Course Hospital Course: Patient was admitted and placed on IV vancomycin. Surgery was consulted. Patient was taken to the OR today after admission for debridement of large left buttock abscess. Postoperatively her pain gradually improved and she was transitioned from intravenous narcotics to oral narcotics. She was continued on vancomycin. Culture from her wound grew out staph aureus. On the eighth patient was discharged home to continue Zyvox. She will follow-up with Dr. Weiner in 10 days Results Labs on day of discharge: Labs from last 24 hours 06/18/17 06/17/17 06/17/17 06:09 20:55 17:15 POC Glucose 142 253 194 06/17/17 11:36 POC Glucose 153 DS: Diagnosis - Discharge Diagnosis (1) Abscess of buttock, left Status: Acute (2) Insulin dependent diabetes mellitus Status: Acute Meds Home Medications Medication Instructions Recorded Confirmed Type Insulin Glargine,Hum.rec.anlog 40 unit SQ BID 06/14/17 06/19/17 History [Lantus Insulin 100units/mL 10mL vial] Insulin Lispro [Humalog] 100 unit SQ QID PRN 06/14/17 06/19/17 History Propranolol HCl [Inderal 20mg 20 mg PO BID 06/14/17 06/19/17 History tablet] Lisinopril [Lisinopril 20mg Tab] 20 mg PO DAILY 06/15/17 06/19/17 History Linezolid [Zyvox] 600 mg PO BID 06/19/17 06/19/17 History Allergies Allergy/AdvReac Type Severity Reaction Status Date / Time Iodinated Contrast Media - Allergy Intermediate I-HIVES Verified 06/08/17 14:02 Oral and [Iodinated Contrast Media - IV Dye] latex Allergy Intermediate I-HIVES Verified 06/08/17 14:02 levofloxacin [From LEVAQUIN] Allergy Unknown I-HIVES Verified 06/08/17 14:02 tramadol [From ULTRAM] Allergy Unknown HIVES/N/V Verified 06/08/17 14:02 ANTIHISTAMINE Allergy Unknown SOB Uncoded 06/08/17 14:02 Discharge Plan - Patient Discharge Instructions ACTIVITY: Continue current activity DIET: continue same diet Additional Instructions: Wet to dry dressings to wound twice daily Patient Instructions: Dehydration, Methicillin-Resistant Staph Infection, DI for Methicillin-Resistant Staph Infection (MRSA), DI for Surgical Site Infection, DI for Skin Abscess Forms: [facility] Work Release - Follow up Plan Follow up with: Elijah Weiner MD [Staff Physician] - 06/29/17 Reji Castaneda [Primary Care Provider] - 1 week Disposition: Home, Self-Nursing Home Medications: Home Medications Medication Instructions Recorded Confirmed Type Insulin Glargine,Hum.rec.anlog 40 unit SQ BID 06/14/17 06/19/17 History [Lantus Insulin 100units/mL 10mL vial] Insulin Lispro [Humalog] 100 unit SQ QID PRN 06/14/17 06/19/17 History Pr
--- NOTE | 2017-06-18 09:41 | P.DS_ITS ---
General - General Admission date: 06/14/17 Discharge date: 06/18/17 HPI HPI: Patient is a 27-year-old diabetic smoker white female. I had actually seen her in the office several weeks ago after she had presented to the emergency department with a small suprapubic abscess and she underwent incision and drainage by the surgeon extrusion manager at that time. At that time her glucose was markedly elevated and recommendation was for admission but the patient refused. She had about a 4 mm wound in the left suprapubic/perineal area which caused her excruciating pain. She failed to keep several appointments in the office but had ultimately followed up a couple weeks ago and had completely healed although patient still requested some narcotics. She was scheduled to be seen in the office this past Thursday but did not keep the appointment. She presented to the emergency department yesterday evening with left gluteal abscess. She was admitted for inpatient management and surgical consultation. She denies fevers or chills. Serum glucose on presentation was 390. Her last A1c was 11. Objective Vital signs: Temp Pulse Resp BP Pulse Ox 99.4 F 82 18 158/94 100 06/18/17 07:49 06/18/17 07:49 06/18/17 07:49 06/18/17 07:49 06/18/17 07:49 Hospital Course Hospital Course: Patient was admitted and placed on IV vancomycin. Surgery was consulted. Patient was taken to the OR today after admission for debridement of large left buttock abscess. Postoperatively her pain gradually improved and she was transitioned from intravenous narcotics to oral narcotics. She was continued on vancomycin. Culture from her wound grew out staph aureus. On the eighth patient was discharged home to continue Zyvox. She will follow-up with Dr. Weiner in 10 days Results Labs on day of discharge: Labs from last 24 hours 06/18/17 06/17/17 06/17/17 06:09 20:55 17:15 POC Glucose 142 253 194 06/17/17 11:36 POC Glucose 153 DS: Diagnosis - Discharge Diagnosis (1) Abscess of buttock, left Status: Acute (2) Insulin dependent diabetes mellitus Status: Acute Meds Home Medications Medication Instructions Recorded Confirmed Type Insulin Glargine,Hum.rec.anlog 40 unit SQ BID 06/14/17 06/19/17 History [Lantus Insulin 100units/mL 10mL vial] Insulin Lispro [Humalog] 100 unit SQ QID PRN 06/14/17 06/19/17 History Propranolol HCl [Inderal 20mg 20 mg PO BID 06/14/17 06/19/17 History tablet] Lisinopril [Lisinopril 20mg Tab] 20 mg PO DAILY 06/15/17 06/19/17 History Linezolid [Zyvox] 600 mg PO BID 06/19/17 06/19/17 History Allergies Allergy/AdvReac Type Severity Reaction Status Date / Time Iodinated Contrast Media - Allergy Intermediate I-HIVES Verified 06/08/17 14:02 Oral and [Iodinated Contrast Media - IV Dye] latex Allergy Intermediate I-HIVES Verified 06/08/17 14:02 levofloxacin [From LEVAQUIN] Allergy Unknown I-HIVES Verified 06/08/17 14:02 tramadol [From ULTRAM] Allergy Unknown HIVES/N/V Verified 06/08/17 14:02 ANTIHISTAMINE Allergy Unknown SOB Uncoded 06/08/17 14:02 Discharge Plan - Patient Discharge Instructions ACTIVITY: Continue current activity DIET: continue same diet Additional Instructions: Wet to dry dressings to wound twice daily Patient Inst
== END 2017-06-18 11:15 | disposition home or self-care (01) | DRG 581 ==
LOC: ER 18:46 → 2ND 19:20
PROVIDERS: Nurse Anesthetist, Certified Registered; Surgery; Admitting Provider Family Medicine; Emergency Provider Emergency Medicine; PCP Pediatrics; Visit Provider Family Medicine
PROC: 0J990ZZ Drainage of Buttock Subcutaneous Tissue and Fascia, Open Approach (ICD-10-PCS; principal; 2017-06-15 11:00)
DX: L02.31 Cutaneous abscess of buttock (principal); E10.9 Type 1 diabetes mellitus without complications; F17.210 Nicotine dependence, cigarettes, uncomplicated; Z79.899 Other long term (current) drug therapy; Z91.041 Radiographic dye allergy status; Z91.040 Latex allergy status; Z88.5 Allergy status to narcotic agent; Z91.09 Other allergy status, other than to drugs and biological substances; Z83.3 Family history of diabetes mellitus; Z82.49 Family history of ischemic heart disease and other diseases of the circulatory system; Z83.2 Family history of diseases of the blood and blood-forming organs and certain disorders involving the immune mechanism; Z91.14 Patient's other noncompliance with medication regimen; Z79.4 Long term (current) use of insulin
CPT/HCPCS: 36415; 80048; 80053; 80202; 82962; 83605; 85025; 87040; 87070; 87077; 87186; 87205; 96365; 96375; 96376; 99282; J0131; J2270; J2405; J2543; J3370

== ENCOUNTER 2017-06-19 09:45 | Outpatient (CLI) | payer SELFPAY ==
--- NOTE | 2017-06-19 15:45 | PC.NURSE ---
REMOVED OLD DRESSING AND CLEANED WOUND WITH NS. WOUND BED RED AND MOIST. PACKED WITH NS SOAKED GAUZE, COVERED WITH 2 DRY 4X4'S FOLDED IN HALF FOLLOWED BY 1/2 DRY ABD PAD AND TAPED IN PLACE.
== END 2017-06-19 10:40 | disposition home or self-care (01) ==
LOC: INF 10:32
PROVIDERS: PCP Pediatrics; Visit Provider Surgery
DX: L02.31 Cutaneous abscess of buttock (principal)
CPT/HCPCS: G0463

== ENCOUNTER → 2017-06-20 12:17 | Outpatient (CLI) | payer BC, SELFPAY ==
--- NOTE | 2017-06-20 14:28 | PC.NURSE ---
PATIENT SHOWED FOR DRESSING CHANGE TO [facility] AND WE WERE GETTING ON THE ELEVATOR SHE HAD A PHONE CALL TO COME TO WORK. SHE STATES SHE CANNOT STAY FOR DRESSING CHANGE AND IS GOING TO [place] TO WORK. SHE STATES SHE WILL BE HERE IN THE MORNING FOR HER DRESSING CHANGE. DANIEL SALGADO, MSN, RN
== END ==
PROVIDERS: PCP Pediatrics; Visit Provider Surgery
DX: L02.31 Cutaneous abscess of buttock (principal); E11.9 Type 2 diabetes mellitus without complications; Z48.01 Encounter for change or removal of surgical wound dressing

== ENCOUNTER → 2017-06-21 10:32 | Outpatient (CLI) | payer BC, SELFPAY ==
[2017-06-21 10:40] VITALS: BMI 26.6
[2017-06-21 11:20] VITALS: BP 150/101; PULSE 103; RESP 20; TEMP 36.7
== END ==
PROVIDERS: PCP Pediatrics; Visit Provider Surgery
DX: L02.31 Cutaneous abscess of buttock (principal); E11.9 Type 2 diabetes mellitus without complications; Z48.01 Encounter for change or removal of surgical wound dressing
CPT/HCPCS: G0463

== ENCOUNTER 2017-06-22 13:30 | Outpatient (CLI) | payer BC, SELFPAY ==
[2017-06-22 13:50] VITALS: BP 122/78; PULSE 66; RESP 20; TEMP 36.7; O2SAT 98
--- NOTE | 2017-06-22 15:25 | PC.NURSE ---
PT STATED THAT SHE WAS IN MUCH MORE PAIN OVER THE WEEKEND AND THE DRESSING CHANGES WERE PAINFUL FOR HER; PT WAS GIVEN A NEW SCRIPT OF MEDICATIONS ON THURSDAY AND NO LONGER HAS ANY OF THOSE LEFT; MD IS AWARE OF THE SITUATION. REMOVED OLD DRESSING AND PACKING; PT WAS EXTREMELY TENDER WHILE CLEANING THE AREA; PACKED THW WOUND WITH GAUZE ROLL. COVERED WITH 4X4 AND TAPE, PT WILL RETURN TOMORROW.
== END 2017-06-22 13:50 | disposition home or self-care (01) ==
LOC: INF 13:52
PROVIDERS: PCP Pediatrics; Visit Provider Surgery
DX: L02.31 Cutaneous abscess of buttock (principal); E11.9 Type 2 diabetes mellitus without complications; Z48.01 Encounter for change or removal of surgical wound dressing
CPT/HCPCS: G0463

== ENCOUNTER 2017-06-23 14:05 | Outpatient (CLI) | payer BC, SELFPAY | END 2017-06-23 14:35 | disposition home or self-care (01) | LOC: INF 14:10 | PROVIDERS: PCP Pediatrics; Visit Provider Surgery | DX: L02.31 Cutaneous abscess of buttock (principal); E11.9 Type 2 diabetes mellitus without complications; Z48.01 Encounter for change or removal of surgical wound dressing | CPT/HCPCS: G0463 ==

== ENCOUNTER 2017-06-26 10:15 | Outpatient (CLI) | payer BC, SELFPAY ==
[2017-06-26 10:30] VITALS: BP 122/70; PULSE 66; RESP 20; TEMP 36.4; O2SAT 96
== END 2017-06-26 10:55 | disposition home health service (06) ==
LOC: INF 18:22
PROVIDERS: PCP Pediatrics; Visit Provider Surgery
DX: L02.31 Cutaneous abscess of buttock (principal); E11.9 Type 2 diabetes mellitus without complications; Z79.4 Long term (current) use of insulin
CPT/HCPCS: G0463

== ENCOUNTER 2017-06-28 10:02 | Outpatient (CLI) | payer BC, SELFPAY ==
--- NOTE | 2017-06-28 11:49 | PC.NURSE ---
pt arrived to unit for dressing change at approx 1015. pt dressing was changed. old dressing was noted to be saturated in brownish drainage. pt stated that the stuff needed to have alot of water poured on it before it was taken out . the pt was reminded/informed of the reasoning behind wet to dry dressing and the need for the material to be pulled out dry. the pt refused and again stated it needed to be wet. the pt was squirming across the bed when the rn was attempting to pack the wound. A isaac rn was present and assisted during the dressing change.
== END 2017-06-28 10:45 | disposition home or self-care (01) ==
LOC: INF 10:03
PROVIDERS: PCP Pediatrics; Visit Provider Surgery
DX: L02.31 Cutaneous abscess of buttock (principal); E11.9 Type 2 diabetes mellitus without complications; Z79.4 Long term (current) use of insulin; Z48.01 Encounter for change or removal of surgical wound dressing
CPT/HCPCS: G0463

== ENCOUNTER 2017-07-01 15:15 | Outpatient (CLI) | payer BC, SELFPAY | END 2017-07-01 15:40 | disposition home or self-care (01) | LOC: INF 15:42 | PROVIDERS: PCP Pediatrics; Visit Provider Surgery | DX: L02.31 Cutaneous abscess of buttock (principal); Z48.01 Encounter for change or removal of surgical wound dressing | CPT/HCPCS: G0463 ==

== ENCOUNTER 2017-07-03 17:00 | Outpatient (CLI) | payer BC, SELFPAY ==
--- NOTE | 2017-07-03 17:36 | PC.NURSE ---
07/03/17 Dressing to left buttock changed as ordered. Wound bed beefy red, no odor, no s/s infection. Wound irrigated with NS. Wound packed with NS soaked kerlix, covered with dry 4x4's, secured with medipore tape. pt peg well with no prob noted.
== END 2017-07-03 17:39 | disposition home or self-care (01) ==
LOC: INF 17:13
PROVIDERS: PCP Pediatrics; Visit Provider Surgery
DX: L02.31 Cutaneous abscess of buttock (principal); Z48.01 Encounter for change or removal of surgical wound dressing
CPT/HCPCS: G0463

== ENCOUNTER 2017-07-05 13:22 | Emergency (ER) | payer BC, SELFPAY ==
[2017-07-05 13:34] VITALS: BP 162/100; PULSE 94; RESP 18; TEMP 36.7; O2SAT 98; BMI 16.1
[2017-07-05 13:47] VITALS: BP 144/111; PULSE 107; RESP 20; TEMP 36.8; O2SAT 100; BMI 29.6
--- NOTE | 2017-07-05 13:55 | HMH.EDUTC ---
[facility] [place] Disposition Clinical Impression: Abscess or cellulitis of chin Disposition: Hospice - Medical Facility Condition on Discharge: Good Prescriptions: Bifidobacterium Infantis [Align] 4 mg PO DAILY 30 Days #30 cap Mupirocin [Bactroban 2% Ointment 22gm tube] 1 applicatio TP BID 10 Days #30 tube Clindamycin HCl [Clindamycin 300mg Cap] 300 mg PO TID 10 Days #30 cap Referrals: Reji Castaneda [Primary Care Provider] - Time of Disposition: 14:02 Medical Decision Making - Medical Records Medical records reviewed: Yes: I reviewed the patient's medical records. Vital Signs: 07/05/17 13:34 Temperature 98.1 F Temperature Source Oral Pulse Rate [Right Brachial] 94 H Respiratory Rate 18 Blood Pressure [Right Arm] 162/100 Blood Pressure Mean [Right Arm] 120 Blood Pressure Source [Right Arm] Automatic Cuff Blood Pressure Position [Right Arm] Sitting 02 Sat by Pulse Oximetry 98 Oxygen Delivery Method Room Air - Lab Data Lab results reviewed: Yes: I reviewed the patient's lab results. MRSA sensitive to clindamycin 06/15/17 - Blas Inquiry Pt receiving controlled substance: No Medical Decision Making Narrative: Dr Lilly saw patient while in triage for decision. He stated he would not I&D her face, nor provide pain medication. Recommended clindamycin per culture results, bactroban to face, nares and under nails (after trimming short) and f/u with PCP. Add bleach to bath water as well, wash hands frequently. [facility] [place] HPI - General Stated complaint: SPOT ON CHIN Time Seen by Provider: 07/05/17 13:40 Source of Information: Patient Limitations: No Limitations Description of Symptoms (Recalled from Triage Doc. by RN): abscess to chin - History of Present Illness Provider Complaint: Abscess to chin X 2 days. No fever. IDDM. Had abscess on buttock 3 weeks ago that was MRSA positive. Had labial abscess a few weeks before that. Says sugar isn't well controlled. Onset (ago): day(s) (2) Location: face Relieving factors: none Exacerbating factors: none Associated symptoms: denies other symptoms Treatments prior to arrival: none - Related Data Home Medications Medication Instructions Recorded Confirmed Insulin Glargine,Hum.rec.anlog 40 unit SQ BID 06/14/17 07/03/17 [Lantus Insulin 100units/mL 10mL vial] Insulin Lispro [Humalog] 100 unit SQ QID PRN 06/14/17 07/03/17 Propranolol HCl [Inderal 20mg 20 mg PO BID 06/14/17 07/03/17 tablet] Lisinopril [Lisinopril 20mg Tab] 20 mg PO DAILY 06/15/17 07/03/17 Linezolid [Zyvox] 600 mg PO BID 06/19/17 07/03/17 Previous Rx's Medication Instructions Recorded Bifidobacterium Infantis [Align] 4 mg PO DAILY 30 Days #30 cap 07/05/17 Clindamycin HCl [Clindamycin 300mg 300 mg PO TID 10 Days #30 cap 07/05/17 Cap] Mupirocin [Bactroban 2% Ointment 1 applicatio TP BID 10 Days #30 07/05/17 22gm tube] tube Allergies Allergy/AdvReac Type Severity Reaction Status Date / Time Iodinated Contrast Media - Allergy Intermediate I-HIVES Verified 06/29/17 13:47 Oral and [Iodinated Contrast Media - IV Dye] latex Allergy Intermediate I-HIVES Verified 06/29/17 13:47 levofloxacin [From LEVAQUIN] Allergy Unknown I-HIVES Verified 06/29/17 13:47 tramadol [From ULTRAM] Allergy Unknown HIVES/N/V Verified 06/29/17 13:47 ANTIHISTAMINE Allergy Unknown SOB Uncoded 06/29/17 13:47 [facility] History I have reviewed the patient's past medical history: Yes Medical History: Reports:: Diabetes Mellitus Type 1, Hypertension, MRSA Denies:: Cancer, Diabetes Mellitus Type 2, Seizures Other Medical History: Denies: Blood Transfusion Reaction Laterality Cases: Bilateral: Myringotomy (Ear Tubes), Tonsillectomy Other Surgeries: Yes: Colonoscopy, , EGD, Tubal Ligation Amputation: No Fractures: No - Social History Smoking Status: Current every day smoker Tobacco Type: cigarettes # Packs/Day (cigarettes): 1 #Yrs smoked (if former smoker): 11 Alcohol Intake: ne
--- NOTE | 2017-07-05 13:58 | ED_ITS ---
[facility] [place] Disposition Clinical Impression: Abscess or cellulitis of chin Disposition: Hospice - Medical Facility Condition on Discharge: Good Prescriptions: Bifidobacterium Infantis [Align] 4 mg PO DAILY 30 Days #30 cap Mupirocin [Bactroban 2% Ointment 22gm tube] 1 applicatio TP BID 10 Days # 30 tube Clindamycin HCl [Clindamycin 300mg Cap] 300 mg PO TID 10 Days #30 cap Referrals: Reji Castaneda [Primary Care Provider] - Time of Disposition: 14:02 Medical Decision Making - Medical Records Medical records reviewed: Yes: I reviewed the patient's medical records. Vital Signs: 07/05/17 13:34 Temperature 98.1 F Temperature Source Oral Pulse Rate [Right Brachial] 94 H Respiratory Rate 18 Blood Pressure [Right Arm] 162/100 Blood Pressure Mean [Right Arm] 120 Blood Pressure Source [Right Arm] Automatic Cuff Blood Pressure Position [Right Arm] Sitting 02 Sat by Pulse Oximetry 98 Oxygen Delivery Method Room Air - Lab Data Lab results reviewed: Yes: I reviewed the patient's lab results. MRSA sensitive to clindamycin 06/15/17 - Blas Inquiry Pt receiving controlled substance: No Medical Decision Making Narrative: Dr Lilly saw patient while in triage for decision. He stated he would not I&D her face, nor provide pain medication. Recommended clindamycin per culture results, bactroban to face, nares and under nails (after trimming short) and f/ u with PCP. Add bleach to bath water as well, wash hands frequently. [facility] [place] HPI - General Stated complaint: SPOT ON CHIN Time Seen by Provider: 07/05/17 13:40 Source of Information: Patient Limitations: No Limitations Description of Symptoms (Recalled from Triage Doc. by RN): abscess to chin - History of Present Illness Provider Complaint: Abscess to chin X 2 days. No fever. IDDM. Had abscess on buttock 3 weeks ago that was MRSA positive. Had labial abscess a few weeks before that. Says sugar isn't well controlled. Onset (ago): day(s) (2) Location: face Relieving factors: none Exacerbating factors: none Associated symptoms: denies other symptoms Treatments prior to arrival: none - Related Data Home Medications Medication Instructions Recorded Confirmed Insulin Glargine,Hum.rec.anlog 40 unit SQ BID 06/14/17 07/03/17 [Lantus Insulin 100units/mL 10mL vial] Insulin Lispro [Humalog] 100 unit SQ QID PRN 06/14/17 07/03/17 Propranolol HCl [Inderal 20mg 20 mg PO BID 06/14/17 07/03/17 tablet] Lisinopril [Lisinopril 20mg Tab] 20 mg PO DAILY 06/15/17 07/03/17 Linezolid [Zyvox] 600 mg PO BID 06/19/17 07/03/17 Previous Rx's Medication Instructions Recorded Bifidobacterium Infantis [Align] 4 mg PO DAILY 30 Days #30 cap 07/05/17 Clindamycin HCl [Clindamycin 300mg 300 mg PO TID 10 Days #30 cap 07/05/17 Cap] Mupirocin [Bactroban 2% Ointment 1 applicatio TP BID 10 Days #30 07/05/17 22gm tube] tube Allergies Allergy/AdvReac Type Severity Reaction Status Date / Time Iodinated Contrast Media - Allergy Intermediate I-HIVES Verified 06/29/17 13:47 Oral and [Iodinated Contrast Media - IV Dye] latex Allergy Intermediate I-HIVES Verified 06/29/17 13:47 levofloxacin [From LEVAQUIN] Allergy Unknown I-HIVES Verified 06/29/17 13:47 tramadol [From ULTRAM] Allergy Unknown HIV
[2017-07-05 14:24] VITALS: BP 129/89; PULSE 72; RESP 18; TEMP 36.6
== END 2017-07-05 14:24 | disposition hospice, inpatient (51) ==
LOC: ER 13:37 → UTC 13:38
PROVIDERS: Emergency Provider Physician Assistant; PCP Pediatrics
DX: L03.211 Cellulitis of face (principal); E10.21 Type 1 diabetes mellitus with diabetic nephropathy; Z79.4 Long term (current) use of insulin; I10 Essential (primary) hypertension; Z91.040 Latex allergy status; Z88.1 Allergy status to other antibiotic agents; Z88.6 Allergy status to analgesic agent
CPT/HCPCS: 99281

== ENCOUNTER → 2017-07-05 14:22 | Outpatient (CLI) | payer BC, SELFPAY ==
[2017-07-05 14:22] VITALS: BP 144/111; PULSE 107; RESP 20; TEMP 36.8
[2017-07-05 14:25] VITALS: BMI 28.6
== END ==
PROVIDERS: PCP Pediatrics; Visit Provider Surgery
DX: L02.31 Cutaneous abscess of buttock (principal); Z45.2 Encounter for adjustment and management of vascular access device
CPT/HCPCS: G0463

== ENCOUNTER 2017-07-07 15:01 | Outpatient (CLI) | payer BC, SELFPAY | END 2017-07-07 15:20 | disposition home or self-care (01) | LOC: INF 15:01 | PROVIDERS: PCP Pediatrics; Visit Provider Surgery | DX: L02.31 Cutaneous abscess of buttock (principal); Z48.01 Encounter for change or removal of surgical wound dressing | CPT/HCPCS: G0463 ==

== ENCOUNTER 2017-07-08 10:30 | Outpatient (CLI) | payer BC, SELFPAY | END 2017-07-08 10:40 | disposition home or self-care (01) | LOC: INF 10:39 | PROVIDERS: PCP Pediatrics; Visit Provider Surgery | DX: L02.31 Cutaneous abscess of buttock (principal); Z48.01 Encounter for change or removal of surgical wound dressing | CPT/HCPCS: G0463 ==

== ENCOUNTER 2017-07-10 09:18 | Outpatient (CLI) | payer BC, SELFPAY ==
--- NOTE | 2017-07-10 09:57 | PC.NURSE ---
0930: When removing old dressing, determined that wound is healed enough not to need any packing. Cleaned wound area with saline solution then covered with a dry 2x2 folded and placed large bandaid in place. Educated patient on how to care for wound site at home. Patient verbalizes understanding and states she has taken care of wounds on herself at home before. Gave patient old dressing supplies and gave her the department's phone number if she needed anything else.
== END 2017-07-10 09:35 | disposition home or self-care (01) ==
LOC: INF 09:18
PROVIDERS: PCP Pediatrics; Visit Provider Surgery
DX: L02.91 Cutaneous abscess, unspecified (principal)
CPT/HCPCS: G0463

== ENCOUNTER → 2018-02-17 10:06 | Outpatient (REF) | payer BC, SELFPAY ==
[2018-02-17 14:12] LABS: Basophils % 0.7 % (0.1-2.0); Eosinophils # 0.1 K/mm3 (0.0-0.4); Eosinophils % 2.2 % (0.1-12.0); Hematocrit 40.6 % (37.0-47.0); Hemoglobin 13.1 g/dL (12.2-16.2); Lymphocytes # 2.1 K/mm3 (0.7-4.5); Lymphocytes % 45.7 K/mm3 (10-50); Mean Corpuscular HGB Conc 32.3 g/dL (31.8-35.4); Mean Corpuscular Hemoglobin 29.5 pg (27.0-31.2); Mean Corpuscular Volume 91.3 fl (81-99); Monocytes # 0.2 K/mm3 (0.1-1.0); Monocytes % 3.8 % (1.7-9.3); Neutrophils # 2.2 K/mm3 (1.8-7.8); Neutrophils % 47.6 % (37.0-80.0); Platelet Count 230 K/mm3 (142-424); Red Blood Count 4.45 M/mm3 (4.20-5.40); White Blood Count 4.6 K/mm3 (4.8-10.8)
[2018-02-17 14:31] LABS: Hemoglobin A1C 9.3 % (0.0-7.0)
[2018-02-17 14:43] LABS: Alanine Aminotransferase 32 U/L (12-78); Albumin Level 3.8 gm/dL (3.4-5.0); Alkaline Phosphatase 73 U/L (46-116); Anion Gap 11.2 mEq/L (5-15); Aspartate Amino Transferase 17 U/L (15-37); Bilirubin,Total 0.3 mg/dL (0.2-1.0); Blood Urea Nitrogen 14 mg/dL (7-18); Calcium 8.7 mg/dL (8.5-10.1); Carbon Dioxide 28 mmol/L (21.0-32.0); Chloride 100 mmol/L (98-107); Creatinine,Serum 0.58 mg/dL (0.55-1.02); Estimated Glomerular Filt Rate 123 ml/min (>60); Free T4 (Free Thyroxine) 1.14 ng/dl (0.76-1.46); GFR (African American) 149 ML/MIN (>60); Globulin 3.7 gm/dl (1.3-3.2); Glucose 259 mg/dL (74-106); Potassium 4.2 mmoL/L (3.5-5.1); Sodium 135 mmol/L (136-145); Thyroid Stimulating Hormone 2.42 uIU/ml (0.358-3.740); Total Protein,Serum 7.5 gm/dL (6.4-8.2)
[2018-02-18 07:17] LABS: Hep A Ab, IgM Negative (Negative); Hepatitis B Core Antibody IgM Negative (Negative); Hepatitis B Surface Antigen Negative (Negative)
[2018-02-18 08:09] LABS: Hepatitis C Antibody >11.0 s/co ratio (0.0-0.9)
[2018-02-18 11:28] LABS: Creatinine, Urine 276.7 mg/dL (Not Estab.)
[2018-02-18 15:42] LABS: Vitamin D 25 Hydroxy 26.6 ng/mL (30.0-100.0)
== END ==
LOC: LAB 10:06
PROVIDERS: Visit Provider Emergency Medicine
DX: E11.9 Type 2 diabetes mellitus without complications (principal)
CPT/HCPCS: 80053; 80074; 82043; 82570; 82652; 83036; 84439; 84443; 85025

== ENCOUNTER → 2020-06-20 12:00 | Outpatient (CLI) | payer BC, SELFPAY | PROVIDERS: Visit Provider Physician Assistant | DX: N89.8 Other specified noninflammatory disorders of vagina (principal) | CPT/HCPCS: 87210 ==

== ENCOUNTER 2020-10-22 12:23 | Emergency (ER) | payer BC, SELFPAY ==
[2020-10-22 12:38] VITALS: BP 152/119; PULSE 105; RESP 20; TEMP 37.3; O2SAT 92; BMI 33.4
[2020-10-22 12:42] VITALS: BP 141/94; PULSE 105; RESP 20; TEMP 37.1; O2SAT 94; BMI 33.4
[2020-10-22 13:05] LABS: UTC Strep Screen (Rapid) Negative (Negative)
--- NOTE | 2020-10-22 13:05 | HMH.EDUTC ---
[facility] [place] Disposition Clinical Impression: Pneumonia Qualifiers: Pneumonia type: due to unspecified organism Laterality: unspecified laterality Lung location: unspecified part of lung Qualified Code(s): J18.9 - Pneumonia, unspecified organism Disposition: Home, Self-Care Condition on Discharge: Good Instructions: Pneumonia-Adult Additional Instructions: Drink plenty of fluids. Take tylenol or ibuprofen for pain or fever. Take the medications as directed. Follow up with your regular doctor. GO TO THE ER FOR ANY WORSENING SYMPTOMS Prescriptions: Albuterol Sulfate [Albuterol Sulfate Hfa] 2 puffs IH Q6HP PRN 30 Days #1 hfa.aer.ad PRN Reason: Shortness Of Breath Transmission Status: Received by [id number] Promethazine/Dextromethorphan [Promethazine-Dm Syrup] 5 ml PO Q6HP PRN #240 syrup PRN Reason: Cough Transmission Status: Received by [id number] Azithromycin [Z-Matthew 250mg Tab*] 250 mg PO UD DOSE PK #6 tab Transmission Status: Received by [id number] Referrals: Moon Mccartney [Primary Care Provider] - Forms: Work/School Release Time of Disposition: 13:54 Medical Decision Making - Medical Records Medical records reviewed: No: I reviewed the patient's medical records. - Blas Inquiry Pt receiving controlled substance: No Vital Signs: 10/22/20 12:38 10/22/20 12:42 10/22/20 13:06 Temperature 99.2 F 98.7 F 98.7 F Temperature Source Oral Oral Oral Pulse Rate 105 H Pulse Rate [Left Radial] 105 H 105 H Respiratory Rate 20 20 20 Blood Pressure 141/94 H Blood Pressure [Right Calf] 152/119 H 141/94 H Blood Pressure Mean [Right Calf] 130 109 Blood Pressure Source [Right Calf] Automatic Cuff Blood Pressure Position [Right Calf] Sitting 02 Sat by Pulse Oximetry 92 L 94 L Oxygen Delivery Method Room Air - Lab Data Lab results reviewed: Yes: I reviewed the patient's lab results. Lab Results 10/22/20 13:04: Influenza Type A Ag Negative, Influenza Type B Ag Negative 10/22/20 13:04: Strep Scn Rapid Clinic Negative Orders (Tests/Meds): ED MEDICATIONS Discontinued Medications Generic Name Dose Route Start Last Admin Trade Name Freq PRN Reason Stop Dose Admin Ceftriaxone Sodium 1 gm 10/22/20 13:38 10/22/20 13:43 Ceftriaxone 1gm Vial IM 10/22/20 13:39 1 gm ONCE ONE Administration Protocol Lidocaine HCl 0 ml 10/22/20 13:38 10/22/20 13:43 Lidocaine 1% 5ml Pf Vial IM 10/22/20 13:39 2.1 ml ONCE ONE Administration ORDERS Category Date Time Status Strep Screen Confirmation Stat Micro 10/22/20 13:04 Received - Radiology Data #1 Image(s): Chest Image Reviewed: Yes I reviewed the patient's radiology image, Yes I have reviewed radiologist's interpretation Preliminary Findings: Abnormal PROCEDURE: XR CHEST 2V CLINICAL HISTORY: SOB COMPARISON: CR CXR1 CHEST-PORTABLE from 08/03/2014 CR CXR1 CHEST-PORTABLE from 12/30/2014 CR CXR CHEST(2 VIEWS-NOT PORTABLE) from 01/15/2016 FINDINGS: There are patchy mild bibasilar and right mid lung areas of infiltrate versus atelectasis. Heart size normal. Lungs otherwise clear. No pleural effusion or pneumothorax. No acute bony abnormality. IMPRESSION: Patchy bibasilar and right mid lung areas of infiltrate versus atelectasis. Dictated by: Trev Fleming 10/22/2020 13:27 Trev Fleming in OV 10/22/2020 13:27 [facility] [place] HPI - General Stated complaint: lung pain, fatigue,cough Time Seen by Provider: 10/22/20 13:06 Mode of Arrival: Ambulatory Source of Information: Patient Limitations: No Limitations Description of Symptoms (Recalled from Triage Doc. by RN): PT states that she is have SOB with chest pain, coughing, sore throat, wheezing, congestion, fever, headache and severe aches x 3 days. HEENT Symptoms (Recalled from RN notes): Yes Resp Symptoms (Recalled from RN notes): Yes Skin Symptoms (Recalled from RN no
[2020-10-22 13:06] VITALS: BP 141/94; PULSE 105; RESP 20; TEMP 37.1; O2SAT 94
[2020-10-22 13:38] LABS: UTC Influenza A Antigen Negative (Negative); UTC Influenza B Antigen Negative (Negative)
== END 2020-10-22 13:56 | disposition home or self-care (01) ==
PROVIDERS: Emergency Provider Nurse Practitioner Family; PCP Nurse Practitioner Family
DX: J18.9 Pneumonia, unspecified organism (principal); E10.9 Type 1 diabetes mellitus without complications; I10 Essential (primary) hypertension; F17.210 Nicotine dependence, cigarettes, uncomplicated; Z79.899 Other long term (current) drug therapy
CPT/HCPCS: 71046; 87804; 87880; 96372; 99203; G0463; U0003

== ENCOUNTER 2020-10-25 13:48 | Emergency (ER) | payer BC, SELFPAY ==
[2020-10-25 13:50] VITALS: BP 154/100; PULSE 93; RESP 14; TEMP 36.7; O2SAT 95; BMI 33.4
--- NOTE | 2020-10-25 14:09 | XR_ITS ---
PROCEDURE: XR CHEST PORTABLE CLINICAL HISTORY: SOA COMPARISON: CR CXR1 CHEST-PORTABLE from 12/30/2014 CR CXR CHEST(2 VIEWS-NOT PORTABLE) from 01/15/2016 CR XR CHEST 2V from 10/22/2020 FINDINGS: There is interval resolution infiltrate in the right mid lung and left base with mild residual infiltrate versus atelectasis in the right base. No new pulmonary consolidation. Heart size normal. No pleural effusion or pneumothorax. No acute bony abnormality. IMPRESSION: Mild residual infiltrate versus atelectasis in the right base with interval resolution of the right midlung and left basilar infiltrate. Dictated by: Trev Fleming MD 10/25/2020 14:45 Trev Fleming MD in [place] 10/25/2020 14:45
--- NOTE | 2020-10-25 14:29 | HMH.EDGENADL ---
ED Disposition Clinical Impression: Acute URI Insomnia Qualifiers: Insomnia type: due to medical condition Qualified Code(s): G47.01 - Insomnia due to medical condition Disposition: Home, Self-Care Condition on Discharge: Good Instructions: DI for Viral Upper Respiratory Infection -- Adult Referrals: Pam Calderon PA [Primary Care Provider] - 3 days - Critical Care Critical Care Time: No Attestation: On 10/25/20, the high probability of a clinically significant, sudden or life threatening deterioration of the following system(s) required my full and direct attention, intervention and personal management. The time I documented below is in addition to time spent performing reported procedures but includes the following listed in this critical care notation. Medical Decision Making - Medical Records Medical records reviewed: Yes: I reviewed the patient's medical records. - Blas Inquiry Pt receiving controlled substance: No Vital Signs: 10/25/20 13:50 Temperature 98.1 F Temperature Source Oral Pulse Rate [Right] 93 H Respiratory Rate 14 Blood Pressure [Right Arm] 154/100 H Blood Pressure Mean [Right Arm] 118 02 Sat by Pulse Oximetry 95 Oxygen Delivery Method Room Air Orders (Tests/Meds): ORDERS Category Date Time Status Chest XR -- portable [XR chest portable] Stat Exams 10/25/20 14:09 Taken - Radiology Data #1 Image(s): Chest Image Reviewed: Yes I reviewed the patient's radiology image Preliminary Findings: Normal/NAD Medical Decision Narrative: Patient with what sounds like upper respiratory illness versus seasonal allergies. She is afebrile here. PERC negative, unlikely pulmonary embolus. X-ray per my read shows no acute focal consolidation. She does have slight wheezes, has nebulizers at home and is 95% on room air in no distress here. She is a smoker and I have recommended continued use of her home nebulizers. No facial pain that would suggest acute bacterial sinusitis. Clear posterior oropharynx. Suggested short course of Benadryl for the next 3-5 nights to help with sleep hygiene. Recommended ibuprofen/Tylenol for myalgias. Discharged home for continued follow-up with PCP as needed. General Adult HPI - General Chief complaint: Shortness of Breath/Dyspnea Stated complaint: pnuemonia positive, SOA, cough, fever Time Seen by Provider: 10/25/20 14:29 Mode of Arrival: Family Vehicle Limitations: No Limitations Description of Symptoms (Recalled from ER Triage Doc. by RN): Patient c/o SOA worsening in the last two days. Pt reports she was diagnosed with pneumonia on 10/22/20. Pt also c/o fever and chills. Pt reports she is being treated with antibiotics and steriods. Pt reports she has been treating her fever with Tylenol. - History of Present Illness HPI narrative: This is a 30-year-old female who presents to the emergency department for 4 days of cough, fever which finally resolved yesterday. Cough persists and she has pleuritic pain when coughing. She has been seen by urgent treatment center and her primary care provider yesterday, provided with antibiotics, steroid shots and has been using her home nebulizers. She complains today primarily of persistent cough and difficulty sleeping at night secondary to generalized myalgias. She tested negative for Covid at the beginning of the week. She is a smoker. Patient is asking for something stronger for pain. - Related Data Home Medications Medication Instructions Recorded Confirmed insulin glargine 100 unit/mL (3 50 unit SQ DAILY ml 06/20/20 10/24/20 mL) subcutaneous pen insulin lispro 100 unit/mL 5 unit SQ TID 06/20/20 10/24/20 subcutaneous pen Previous Rx's Medication Instructions Recorded blood-glucose meter See Dose Instructions .ROUTE 02/17/18 .MEDSUPPLY #1 each pen needle, diabetic 31 gauge x See Dose Instructions .ROUTE 02/17/1809/23 .MEDSUPPLY #100 each blood sugar diagnostic
[2020-10-25 14:54] VITALS: BP 132/84; PULSE 78; RESP 20; TEMP 37; O2SAT 94
== END 2020-10-25 14:57 | disposition home or self-care (01) ==
PROVIDERS: Emergency Provider Emergency Medicine; PCP Physician Assistant
DX: J06.9 Acute upper respiratory infection, unspecified (principal); G47.01 Insomnia due to medical condition; I10 Essential (primary) hypertension; E10.9 Type 1 diabetes mellitus without complications; Z79.899 Other long term (current) drug therapy; F17.210 Nicotine dependence, cigarettes, uncomplicated
CPT/HCPCS: 71045; 99282

== ENCOUNTER → 2020-10-31 14:14 | Outpatient (CLI) | payer BC, SELFPAY ==
[2020-10-31 14:17] LABS: Microscopic, Urine URINE MICROSCOPIC (MICROSCOPIC)
[2020-10-31 14:35] LABS: Appearance,Urine CLOUDY (Clear); Bilirubin,Urine Negative (Negative); Blood, Urine 3+ (Negative); Color,Urine AMBER (Yellow); Glucose,Urine (UA) Negative (Negative); Ketones,Urine Negative (Negative); Leukocyte Esterase,Urine Negative (Negative); Nitrate,Urine Negative (Negative); Protein,Urine Negative (Negative); Specific Gravity, Urine 1.015 (1.005-1.030); Urobilinogen,Urine 0.2 EU/dl (0.2)
[2020-10-31 14:44] LABS: Basophils # 0.1 K/mm3 (0-0.2); Basophils % 1.5 % (0.1-2.0); Eosinophils # 0.4 K/mm3 (0.0-0.4); Eosinophils % 4.3 % (0.1-12.0); Hematocrit 44.5 % (37.0-47.0); Hemoglobin 14.9 g/dL (12.2-16.2); Lymphocytes # 2.9 K/mm3 (0.7-4.5); Lymphocytes % 32.4 % (10-50); Mean Corpuscular HGB Conc 33.5 g/dL (31.8-35.4); Mean Corpuscular Hemoglobin 29.5 pg (27.0-31.2); Mean Platelet Volume 7.5 fl (7.4-10.4); Monocytes # 0.3 K/mm3 (0.1-1.0); Monocytes % 3.1 % (1.7-9.3); Neutrophils # 5.3 K/mm3 (1.8-7.8); Neutrophils % 58.6 % (37.0-80.0); Platelet Count 294 K/mm3 (142-424); Red Blood Count 5.05 M/mm3 (4.20-5.40); Red Cell Distribution Width 12.9 % (11.5-17.5)
[2020-10-31 15:02] LABS: Hemoglobin A1C 7.2 % (4.0-6.0); Lactic Acid 1.1 mmol/L (0.7-2.1)
[2020-10-31 15:15] LABS: RBC,Urine 20-50 #/hpf (0-3)
[2020-10-31 15:16] LABS: Bacteria,Urine 2+ /lpf
[2020-10-31 15:24] LABS: Chloride 101 mmol/L (98-107)
[2020-10-31 15:27] LABS: Blood Urea Nitrogen 11 mg/dl (7-17); Carbon Dioxide 28 mmol/L (22.0-30.0); Estimated Glomerular Filt Rate 116 ml/min (>60); GFR (African American) 140 ML/MIN (>60)
[2020-10-31 15:38] LABS: Coronavirus 19 IgG Antibody Positive (Negative); Coronavirus 19 IgM Antibody Negative (Negative)
[2020-10-31 15:57] LABS: Alanine Aminotransferase 17 U/L (12-78); Albumin Level 4.4 g/dl (3.5-5.0); Albumin/Globulin Ratio 1.4 (1.1-1.8); Alkaline Phosphatase 77 U/L (38-126); Anion Gap 12.5 mEq/L (5-15); Aspartate Amino Transferase 26 U/L (14-36); Bilirubin,Total 0.4 mg/dl (0.2-1.3); Calcium 9.8 mg/dl (8.4-10.2); Globulin 3.1 g/dL (1.3-3.2); Glucose 232 mg/dl (74-100); Potassium 4.5 mmoL/L (3.5-5.1); Sodium 137 mmol/L (136-145); Total Protein,Serum 7.5 g/dl (6.3-8.2)
[2020-10-31 16:20] LABS: Procalcitonin < 0.030 ng/mL (0.0-2.0)
[2020-10-31 16:39] LABS: Thyroid Stimulating Hormone 1.21 uIU/mL (0.465-4.68)
[2020-10-31 18:47] LABS: Acetone, Serum (Rapid) None Detected (None Detect)
== END ==
PROVIDERS: Visit Provider Physician Assistant
DX: J18.9 Pneumonia, unspecified organism (principal); E11.9 Type 2 diabetes mellitus without complications; Z79.4 Long term (current) use of insulin; Z11.52 Encounter for screening for COVID-19; R06.02 Shortness of breath; R06.2 Wheezing
CPT/HCPCS: 36415; 80053; 81001; 82009; 83036; 83605; 84145; 84443; 85025; 86328; 87086; 87088; 87186

== ENCOUNTER 2020-11-27 18:00 | Emergency (ER) | payer BC, SELFPAY ==
[2020-11-27 18:25] VITALS: BP 127/73; PULSE 76; RESP 20; TEMP 37.1; O2SAT 98; BMI 36.0
--- NOTE | 2020-11-27 18:56 | HMH.EDUTC ---
[facility] [place] Clinical Impression: BV (bacterial vaginosis) Disposition: Home, Self-Care Condition on Discharge: Good Instructions: Bacterial Vaginosis, DI for Bacterial Vaginosis, Metronidazole, Fluconazole Additional Instructions: Only wash private area with nonscented soap when needed better to just use water Take medication as prescribed Follow up with OBGYN if needed Follow up with your Family Doctor if no improvement or any worsening of symptoms Straight to ER if any life threatening symptoms Prescriptions: Fluconazole [Diflucan 150mg tab] 150 mg PO DIRECTED #2 tab Transmission Status: Pending to [facility] # metroNIDAZOLE [Flagyl 500mg Tablet] 500 mg PO Q12 7 Days #14 tab Transmission Status: Pending to [facility] # Referrals: Pam Calderon PA [Primary Care Provider] - Time of Disposition: 19:06 Medical Decision Making - Blas Inquiry Pt receiving controlled substance: No Blas was queried for this patient: No Vital Signs: 11/27/20 18:25 Temperature 98.7 F Temperature Source Oral Pulse Rate [Left Brachial] 76 Respiratory Rate 20 Blood Pressure [Left Arm] 127/73 Blood Pressure Mean [Left Arm] 91 Blood Pressure Source [Left Arm] Automatic Cuff Blood Pressure Position [Left Arm] Sitting 02 Sat by Pulse Oximetry 98 Oxygen Delivery Method Room Air [facility] [place] - General Stated complaint: possible yeast/bacterial infection Time Seen by Provider: 11/27/20 18:56 Mode of Arrival: Ambulatory Source of Information: Patient Limitations: No Limitations Description of Symptoms (Recalled from Triage Doc. by RN): PATIENT C/O POSSIBLE YEAST/BACTERIAL INFECTION X 2 DAYS HEENT Symptoms (Recalled from RN notes): No Resp Symptoms (Recalled from RN notes): No Skin Symptoms (Recalled from RN notes): No MS Symptoms (Recalled from RN notes): No Functional Status (Recalled from RN notes): WNL - History of Present Illness Provider Complaint: Patient states that about a month or so ago she had a vaginal bacterial infection and yeast infection and got treated by her PCP State that she recently changed her bodywash and thinks she has it again as she is having the same symptoms so she came in to get medication before it got too bad States that she is having grayish white discharge with fishy like smell and itching - Related Data Home Medications Medication Instructions Recorded Confirmed Gabapentin [Neurontin 300mg 300 mg PO DAILY 11/27/20 11/27/20 capsule] Insulin Lispro [Humalog] 100 unit SQ DAILY 11/27/20 11/27/20 Rosuvastatin Calcium [Crestor 10mg 10 mg PO DAILY 11/27/20 11/27/20 Tablets] lisinopriL [Prinivil 10mg Tablet] 10 mg PO DAILY 11/27/20 11/27/20 Previous Rx's Medication Instructions Recorded acyclovir 400 mg tablet 400 mg PO BID 30 Days #60 tab 06/20/20 Fluconazole [Diflucan 150mg tab] 150 mg PO DIRECTED #2 tab 11/27/20 metroNIDAZOLE [Flagyl 500mg 500 mg PO Q12 7 Days #14 tab 11/27/20 Tablet] Allergies Allergy/AdvReac Type Severity Reaction Status Date / Time Iodinated Contrast Media Allergy Intermediate Hives Verified 10/31/20 14:54 [Iodinated Contrast Media - IV Dye] latex Allergy Intermediate Hives Verified 10/31/20 14:54 tramadol [From ULTRAM] Allergy Unknown HIVES/N/V Verified 10/31/20 14:54 - Worker's Comp Is this a Worker's Comp case?: No [facility] History - Hepatitis A Screen Drug use history?: No High risk sexual behaviors?: No History of sexually transmitted infection?: No Currently employed?: No Childcare worker?: No Do you have indoor plumbing?: Yes Do you have electricity?: Yes Attestation statement:: This patient has been screened for Hepatitis A risk factors. I have reviewed the patient's past medical history: Yes Medical History: Reports:: Diabetes Mellitus Type 1, Hypertension Denies:: Cancer, Diabetes Mellitus Type 2, MRSA, Seizures Other Medical History: Denies: Blood Trans
[2020-11-27 19:07] VITALS: BP 127/73; PULSE 76; RESP 20; TEMP 37.1; O2SAT 98
== END 2020-11-27 19:10 | disposition home or self-care (01) ==
PROVIDERS: Emergency Provider Nurse Practitioner; PCP Physician Assistant
DX: N76.0 Acute vaginitis (principal); E10.9 Type 1 diabetes mellitus without complications; Z79.4 Long term (current) use of insulin; F17.210 Nicotine dependence, cigarettes, uncomplicated
CPT/HCPCS: 99202; G0463

== ENCOUNTER → 2020-12-04 18:29 | Outpatient (CLI) | payer BC, SELFPAY ==
[2020-12-06 23:37] LABS: Neisseria gonorrhoeae, NAA Negative (Negative)
== END ==
PROVIDERS: Visit Provider Physician Assistant
DX: R10.2 Pelvic and perineal pain (principal)
CPT/HCPCS: 87086; 87491; 87591

== ENCOUNTER → 2020-12-31 17:53 | Outpatient (CLI) | payer BC, SELFPAY | PROVIDERS: Visit Provider Internal Medicine Gastroenterology | DX: R76.8 Other specified abnormal immunological findings in serum (principal) ==

== ENCOUNTER 2021-01-05 14:28 | Emergency (ER) | payer BC, SELFPAY ==
[2021-01-05 16:50] VITALS: BP 0/0; PULSE 0; RESP 0; TEMP -17.7; TEMP 0
== END 2021-01-05 16:51 | disposition left against medical advice (07) ==
PROVIDERS: Emergency Provider Nurse Practitioner Family; PCP Physician Assistant
DX: Z53.21 Procedure and treatment not carried out due to patient leaving prior to being seen by health care provider (principal)

== ENCOUNTER → 2021-01-07 15:33 | Outpatient (CLI) | payer BC, SELFPAY | PROVIDERS: Visit Provider Physician Assistant | DX: Z20.822 Contact with and (suspected) exposure to COVID-19 (principal) | CPT/HCPCS: U0003 ==

== ENCOUNTER → 2021-01-10 20:13 | Outpatient (CLI) | payer BC, SELFPAY | PROVIDERS: Visit Provider Nurse Practitioner Family | DX: Z20.822 Contact with and (suspected) exposure to COVID-19 (principal) | CPT/HCPCS: U0003 ==

== ENCOUNTER → 2021-03-13 17:04 | Outpatient (CLI) | payer BC, SELFPAY ==
[2021-03-13 17:07] LABS: Adenovirus,PCR Not Detected (NotDetected); Bordetella Pertussis Not Detected (NotDetected); Chlamydophila Pneumoniae, PCR Not Detected (NotDetected); Coronavirus 19, PCR Not Detected (NotDetected); Coronavirus 229E Not Detected (NotDetected); Coronavirus NL63 Not Detected (NotDetected); Coronavirus OC43 Not Detected (NotDetected); Coronovirus HKU1,PCR Not Detected (NotDetected); Human Metapneumovirus Not Detected (NotDetected); Influenza A, PCR Not Detected (NotDetected); Influenza AH1, 2009 Not Detected (NotDetected); Influenza AH1, PCR Not Detected (NotDetected); Influenza AH3,PCR Not Detected (NotDetected); Influenza B, PCR Not Detected (NotDetected); Mycoplasma Pneumoniae, PCR Not Detected (NotDetected); Parainfluenza 1, PCR Not Detected (NotDetected); Parainfluenza 2, PCR Not Detected (NotDetected); Parainfluenza 3, PCR Not Detected (NotDetected); Parainfluenza 4, PCR Not Detected (NotDetected); Respiratory Syncytial Virus Not Detected (NotDetected)
[2021-03-13 19:55] LABS: Rhinovirus/Enterovirus Detected (NotDetected)
== END ==
PROVIDERS: Visit Provider Nurse Practitioner Family
DX: Z20.822 Contact with and (suspected) exposure to COVID-19 (principal); B34.1 Enterovirus infection, unspecified
CPT/HCPCS: 87581; 87632; 87798; C9803; U0003; U0005

== ENCOUNTER 2021-04-22 13:57 | Emergency (ER) | payer BC, SELFPAY ==
[2021-04-22 15:59] VITALS: BP 154/105; PULSE 71; RESP 18; TEMP 36.8; O2SAT 99; BMI 37.2
--- NOTE | 2021-04-22 16:03 | HMH.EDUTC ---
[facility] [place] Clinical Impression: Leg edema Upper respiratory infection Qualifiers: URI type: unspecified URI Qualified Code(s): J06.9 - Acute upper respiratory infection, unspecified Type 1 diabetes Qualifiers: Diabetes mellitus complication status: without complication Qualified Code(s): E10.9 - Type 1 diabetes mellitus without complications Disposition: Home, Self-Care Condition on Discharge: Good Instructions: DI for Viral Upper Respiratory Infection -- Adult, DI for Peripheral Edema -- Bilateral Additional Instructions: Drink plenty of fluids. Rest and elevate your feet and legs as much time as possible. Take tylenol for pain or fever. Take the medications as directed. Take the lasix sparingly for your leg edema. Please follow up with your primary care physician to discuss this and for further evaluation and treatment for this. Follow up with your regular doctor. GO TO THE ER FOR ANY WORSENING SYMPTOMS Prescriptions: Furosemide [Lasix 20mg tab] 20 mg PO DAILYP PRN #10 tab PRN Reason: Edema Transmission Status: Received by [facility] #[id number] Azithromycin [Z-Matthew 250mg Tab*] 250 mg PO UD DOSE PK #6 tab Transmission Status: Received by [facility] #[id number] Referrals: Jasper Lang MD [Primary Care Provider] - Time of Disposition: 17:44 Medical Decision Making - Medical Records Medical records reviewed: No: I reviewed the patient's medical records. - Blas Inquiry Pt receiving controlled substance: No Vital Signs: 04/22/21 15:59 04/22/21 17:56 Temperature 98.2 F 98.2 F Temperature Source Oral Pulse Rate 71 Pulse Rate [Left] 71 Respiratory Rate 18 18 Blood Pressure 154/105 H Blood Pressure [Right Arm] 154/105 H Blood Pressure Mean [Right Arm] 121 02 Sat by Pulse Oximetry 99 - Lab Data Lab results reviewed: Yes: I reviewed the patient's lab results. Lab Results 04/22/21 16:24: Strep [facility]n [facility] Negative 04/22/21 17:00: WBC 7.5, RBC 4.43, Hgb 13.3, Hct 41.6, MCV 93.7, MCH 30.1, MCHC 32.1, RDW 13.2, Plt Count 234, MPV 7.7, Neut % (Auto) 56.8, Lymph % (Auto) 34.7, [place] % (Auto) 3.7, Eos % (Auto) 3.8, Baso % (Auto) 1.0, Neut # (Auto) 4.3, Lymph # (Auto) 2.6, [place] # (Auto) 0.3, Eos # (Auto) 0.3, Baso # (Auto) 0.1, ESR 53 H 04/22/21 17:00: Sodium 137, Potassium 3.9, Chloride 104, Carbon Dioxide 29, Anion Gap 7.9, BUN 10, Creatinine 0.60, Estimated Creat Clear 236, Estimated GFR 116, Est GFR ( Amer) 140, Glucose 185 H, Calcium 9.1, Total Bilirubin 0.1 L, AST 46 H, ALT 31, Alkaline Phosphatase 82, C-Reactive Protein 18.9 H, Total Protein 6.7, Albumin 3.9, Globulin 2.8, Albumin/Globulin Ratio 1.4 Result diagrams: 04/22/21 17:00 04/22/21 17:00 Orders (Tests/Meds): ORDERS Category Date Time Status Strep Screen Confirmation Routine Micro 04/22/21 16:24 Received [facility] [place]PI - General Stated complaint: cough, runny nose, legs swelling Time Seen by Provider: 04/22/21 16:03 - History of Present Illness Provider Complaint: She states that for the past 3 days she has had worsening bilateral lower extremity swelling and pain. She denies any history of having similar symptoms. She is a type 1 diabetic. She has an insulin pump and she states that blood sugars have been doing wonderful as normal for her. She denies any fever or chills. She has had cellulitis in the past, but she did not have these symptoms that she is currently having with it. She also has some upper respiratory congestion and drainage, but she states that this has not been too severe and it does not explain her bilateral leg swelling at all. She denies any shortness of breath. She denies any chest pain. She denies any fever or chills. She takes her insulin via the insulin pump and lisinopril. She denies any recent change in medications or dosages. - Related Data Home Medications Medication Instructions Recorded Confirmed Insulin Lispro [Humalog] 100 u
[2021-04-22 16:26] LABS: UTC Strep Screen (Rapid) Negative (Negative)
[2021-04-22 17:21] LABS: Anion Gap 7.9 mEq/L (5-15); Blood Urea Nitrogen 10 mg/dl (7-17); Carbon Dioxide 29 mmol/L (22.0-30.0); Chloride 104 mmol/L (98-107); Creatinine Clearance Estimated 236 mL/min (50-200); Potassium 3.9 mmoL/L (3.5-5.1); Sodium 137 mmol/L (136-145)
[2021-04-22 17:22] LABS: Alanine Aminotransferase 31 U/L (12-78); Albumin Level 3.9 g/dl (3.5-5.0); Albumin/Globulin Ratio 1.4 (1.1-1.8); Alkaline Phosphatase 82 U/L (38-126); Aspartate Amino Transferase 46 U/L (14-36); Basophils # 0.1 K/mm3 (0-0.2); Bilirubin,Total 0.1 mg/dl (0.2-1.3); Calcium 9.1 mg/dl (8.4-10.2); Eosinophils # 0.3 K/mm3 (0.0-0.4); Eosinophils % 3.8 % (0.1-12.0); Estimated Glomerular Filt Rate 116 ml/min (>60); GFR (African American) 140 ML/MIN (>60); Globulin 2.8 g/dL (1.3-3.2); Glucose 185 mg/dl (74-100); Hematocrit 41.6 % (37.0-47.0); Hemoglobin 13.3 g/dL (12.2-16.2); Lymphocytes # 2.6 K/mm3 (0.7-4.5); Lymphocytes % 34.7 % (10-50); Mean Corpuscular HGB Conc 32.1 g/dL (31.8-35.4); Mean Corpuscular Hemoglobin 30.1 pg (27.0-31.2); Mean Corpuscular Volume 93.7 fl (81-99); Mean Platelet Volume 7.7 fl (7.4-10.4); Monocytes # 0.3 K/mm3 (0.1-1.0); Monocytes % 3.7 % (1.7-9.3); Neutrophils # 4.3 K/mm3 (1.8-7.8); Neutrophils % 56.8 % (37.0-80.0); Platelet Count 234 K/mm3 (142-424); Red Blood Count 4.43 M/mm3 (4.20-5.40); Red Cell Distribution Width 13.2 % (11.5-17.5); Total Protein,Serum 6.7 g/dl (6.3-8.2); White Blood Count 7.5 K/mm3 (4.8-10.8)
[2021-04-22 17:26] LABS: C-Reactive Protein 18.9 mg/L (0-4)
[2021-04-22 17:56] VITALS: BP 154/105; PULSE 71; RESP 18; TEMP 36.8
[2021-04-22 19:03] LABS: Erythrocyte Sedimentation Rate 53 mm/hr (0-20)
== END 2021-04-22 17:57 | disposition home or self-care (01) ==
PROVIDERS: Emergency Provider Nurse Practitioner Family; PCP Emergency Medicine
DX: J06.9 Acute upper respiratory infection, unspecified (principal); E10.65 Type 1 diabetes mellitus with hyperglycemia; I10 Essential (primary) hypertension; E78.5 Hyperlipidemia, unspecified; F17.210 Nicotine dependence, cigarettes, uncomplicated; Z79.899 Other long term (current) drug therapy
CPT/HCPCS: 36415; 80053; 85025; 85651; 86140; 87880; 99202; G0463